=== PATIENT | female | born 1945 | race Caucasian/White ===

== ENCOUNTER → 2017-02-13 | Outpatient (CLI) | payer BC ==
[~2017-02-13] MED LIST: ASPEC81 PO; ATV/1 PO; ESTRADIOL 0.5MG PO; FEXO1TAB45 PO; HERBAL SUPPLEMENTS; HYZ/50125 PO; LEVO-366 PO; MEDR2.5T PO; NSNN50; OXYC1TAB3 PO; SENN8.6T36 PO; SNG10 PO; SYN125 PO; [UNRECOGNIZED DRUG - CODE] PO
--- NOTE | 2017-02-13 11:01 | DIAGNOSTIC IMAGING REPORT ---
LEFT HIP UNILATERAL 2 VIEWS CLINICAL HISTORY: Left hip pain. Trauma. COMPARISON: None. DISCUSSION: There is subtle chondrocalcinosis. There are no acute fractures. There are minor degenerative changes with minimal femoral head spurring. IMPRESSION: No acute fractures or dislocations identified. Electronically signed by: Edgar Steinberg M.D. 02/13/2017 11:00 AM Dictated Date/Time: 02/13/2017 10:59 AM
== END | disposition home or self-care (01) ==
LOC: C.RAD1850 10:40
PROVIDERS: ATTEND Nurse Practitioner Family
DX: M25.552 Pain in left hip (principal)

== ENCOUNTER → 2017-03-21 | Outpatient (CLI) | payer BC | END | disposition home or self-care (01) | LOC: C.PAPS 03-20 11:40 | PROVIDERS: ATTEND Obstetrics & Gynecology | DX: Z12.4 Encounter for screening for malignant neoplasm of cervix (principal) ==

== ENCOUNTER → 2017-05-30 | Outpatient (CLI) | payer BC ==
--- NOTE | 2017-05-30 15:34 | MAMMOGRAPHY REPORT ---
BILATERAL DIGITAL SCREENING MAMMOGRAM TOMOSYNTHESIS WITH CAD: 05/30/2017 CLINICAL HISTORY: Routine screening. Patient has no complaints. TECHNIQUE: Breast tomosynthesis in addition to standard 2D mammography was performed. Current study was also evaluated with a Computer Aided Detection (CAD) system. COMPARISON: Comparison is made to exams dated: 08/15/2015 mammogram, 09/10/2010 mammogram, 03/08/2010 mammogram, 03/05/2010 mammogram, 06/13/2005 mammogram, and 04/06/2003 mammogram - [facility] enter. BREAST COMPOSITION: The tissue of both breasts is heterogeneously dense, which may obscure small mas ses. FINDINGS: No suspicious masses, calcifications, or areas of architectural distortion are noted in ei ther breast. There has been no significant interval change compared to prior exams. Benign rodlike s ecretory calcifications are again noted bilaterally. IMPRESSION: ACR BI-RADS CATEGORY 2: BENIGN There is no mammographic evidence of malignancy. A 1 year screening mammogram is recommended. The pa tient will receive written notification of the results. Approximately 10% of breast cancers are not detected with mammography. A negative mammographic report should not delay biopsy if a clinically suggestive mass is present. Lina Vela M.D. /:05/30/2017 12:39:43 Swatch Cutter: Kylah GLOVER)(Anne)(BD), [facility] letter sent: Normal 1/2 BI-RADS Code: ACR BI-RADS Category 2: Benign
== END | disposition home or self-care (01) ==
LOC: C.MAMM 12:12
PROVIDERS: ATTEND Nurse Practitioner Family
DX: Z12.31 Encounter for screening mammogram for malignant neoplasm of breast (principal)

== ENCOUNTER → 2017-08-15 | Outpatient (CLI) | payer BC | END | disposition home or self-care (01) | LOC: C.RDSM 11:00 | PROVIDERS: ATTEND Orthopaedic Surgery | DX: M25.552 Pain in left hip (principal) ==

== ENCOUNTER 2018-02-05 13:23 | Inpatient (IN) | payer BC, OTHER ==
[~2018-02-05] VITALS: Ht 154.9 cm; Wt 84.0 kg
[2018-02-05] MEDS ORDERED: ASPI81TA28 PO (14:04)
[2018-02-05] MEDS ORDERED: LEVO175T3 PO (14:04)
[2018-02-05] MEDS ORDERED: LOSA100T65 PO (14:04)
--- NOTE | 2018-02-05 14:07 | EMERGENCY ROOM VISIT NOTE ---
History Report prepared by Amanda: Miquel Javier Under the Supervision of: Dr. Mushtaq Mcleod M.D. First contact with patient: 13:58 Chief Complaint: DIARRHEA Stated Complaint: SEVERE LIQUID DIARRHEA, NAUSEA History of Present Illness The patient is a 72 year old female who presents to the Emergency Room with complaints of intermittent diarrhea for the past 5 days. Patient describes the diarrhea as "liquid" in appearance. She adds that she has a headache, back pain , and nausea. Patient states that she sees Grace DAVIS for her symptoms. Patient states that she was at her office 2 days ago and was able to give a stool specimen. She adds that during that visit her abdomen was soft. Patient states that she went back to her office this morning was told to start eating and drinking. Patient states that diarrhea was worsened after she began to eat and drink. She states that she dropped off a stool specimen at Grace Presley's office this morning and was then told to come into the ED. Patient states that she used Imodium AD 2 times but it did not relieve the symptoms. Patient adds that she took doxycycline a month ago for symptoms of nausea, vomiting, and diarrhea. Patient states that she is "not with it right now". Source of History: patient Onset: 5 days ago Position: other (Rectum) Timing: intermittent Modifying Factors (Worsening): eating, drinking Associated Symptoms: + headache, + nausea, + back pain Review of Systems See HPI for pertinent positives and negatives. A total of ten systems were reviewed and were otherwise negative. Past Medical & Surgical Medical Problems: (1) WYATT (acute kidney injury) (2) Asthma (3) Hypertension (4) Stomach problems Surgical Problems: (1) History of back surgery Family History FH: cancer FHx: diabetes mellitus FHx: heart disease FHx: hypertension FHx: lung disease Social History Smoking Status: Never Smoker Marital Status: single Occupation Status: employed Current/Historical Medications Scheduled Aspirin (Aspirin Ec), 81 MG PO DAILY Hctz/Losartan (Hyzaar 12.5MG/50MG), 1 TAB PO DAILY Levothyroxine Sodium (Levothyroxine Sodium), 175 MCG PO DAILY Losartan Potassium (Cozaar), 100 MG PO DAILY Allergies Coded Allergies: Isopropyl Alcohol (Verified Allergy, Intermediate, RED BULLET-LIKE RASH, ) Codeine (Unverified Allergy, Unknown, n/v, 02/05/18) Acetaminophen (Verified Adverse Reaction, Unknown, doesn't want, feel funny, 02/05/18) Lisinopril (Verified Adverse Reaction, Unknown, cough, 02/05/18) Meperidine (Verified Adverse Reaction, Unknown, n/v/diaphoretic, 02/05/18) Sulfa Antibiotics (Verified Adverse Reaction, Unknown, N/V, 02/05/18) Physical Exam Vital Signs Date Time Temp Pulse Resp B/P (MAP) Pulse Ox O2 Delivery O2 Flow Rate FiO2 02/05/18 18:36 72 02/05/18 17:26 79 18 164/80 96 02/05/18 15:35 80 18 170/77 98 02/05/18 14:35 88 02/05/18 13:26 36.8 104 20 106/70 99 Room Air Physical Exam GENERAL: Awake, alert, uncomfortable, fatigued-appearing, in no distress HENT: Normocephalic, atraumatic. Oropharynx unremarkable other than dry mucous membranes. EYES: Normal conjunctiva. Sclera non-icteric. NECK: Supple. No nuchal rigidity. FROM. No JVD. RESPIRATORY: Clear to auscultation. CARDIAC: Regular rate, normal rhythm. Extremities warm and well perfused. Pulses equal. ABDOMEN: Generalized abdominal discomfort. No discrete tenderness to palpation. No rebound or guarding. No masses. RECTAL: Deferred. MUSCULOSKELETAL: Chest examination reveals no tenderness. The back is symmetrical on inspection without obvious abnormality. There is no CVA tenderness to palpation. No joint edema. LOWER EXTREMITIES: Calves are equal size bilaterally and non-tender. No edema. No discoloration. NEURO: Normal sensorium. No sensory or motor deficits noted. SKIN: No rash or jaundice noted. Medical Decision & Procedures ER Provider Diagnostic Interpretation: Radiology results as stated below per my review and radiologist interpretation: CHEST ONE VIEW PORTABLE CLINICAL HISTORY: ABDOMINAL PAIN/GI COMPARISON STUDY: No previous studies for comparison. FINDINGS: The bones soft tissues and hemidiaphragms are normal. The cardiomediastinal silhouette is normal. The lungs are clear. The pulmonary vasculature is normal. IMPRESSION: Negative chest. The above report was generated using voice recognition software. It may contain grammatical, syntax or spelling errors. Electronically signed by: Tate Hernandez M.D. 02/05/2018 3:08 PM ABDOMEN AND PELVIS CT WITHOUT CONTRAST CT DOSE: 851.34 mGy.cm HISTORY: Acute generalized abdominal pain with diarrhea abd pain, diarrhea TECHNIQUE: Multiaxial CT images of the abdomen and pelvis were performed without contrast. A dose lowering technique was utilized adhering to the principles of ALARA. COMPARISON STUDY: CT abdomen and pelvis 02/18/2013 FINDINGS: Patchy bibasilar groundglass opacities. No pneumatosis or pneumoperitoneum identified. The imaged inferior cardiac chambers are mildly enlarged without pericardial effusion. The liver, gallbladder, spleen, pancreas and adrenal glands are within normal limits. 6 mm peripherally calcified splenic artery aneurysm near the splenic hilum. 3 mm calcification of the medial interpolar left kidney suggests a vascular calcification. No ureteral calculi or obstructive uropathy. Bladder is unremarkable. Calcified uterine fibroids are noted within the fundal uterus. No adnexal mass lesions. Moderate calcification of the aorta without aneurysm. No bulky adenopathy. There is no bowel obstruction or focal bowel wall thickening. Mild degree of colonic diverticulosis without diverticulitis. There are multiple fluid-filled loops of large bowel noted throughout. I attenuating material seen within a noninflamed appendix suggesting appendicolith or retained barium. Indeterminate peripherally calcified 12 mm structure about the abdominal right lower quadrant may reflect a calcified lymph node. Tiny fat filled periumbilical hernia, diastases 1.8 cm. Calcifications of the bilateral breast parenchyma. Prior posterior decompression with interbody alison and screw fusion at L2-S1. Severe intervertebral disc space narrowing with endplate spurring at L1-L2. IMPRESSION: 1. Multiple fluid-filled loops of large bowel suggest diarrheal state without evidence of bowel wall thickening or bowel obstruction. 2. High attenuating material within the appendiceal lumen may reflect appendicolith or retained barium without evidence of acute appendicitis. 3. Calcified uterine fibroids. 4. Tiny fat filled periumbilical hernia. 5. Mild colonic diverticulosis without evidence of acute diverticulitis. Electronically signed by: Toñito Winter M.D. 02/05/2018 5:32 PM Laboratory Results 02/05/18 14:36 Red Blood Count 5.22, Mean Corpuscular Volume 88.7, Mean Corpuscular Hemoglobin 31.4, Mean Corpuscular Hemoglobin Concent 35.4, Mean Platelet Volume 10.5, Neutrophils (%) (Auto) 67.1, Lymphocytes (%) (Auto) 24.6, Monocytes (%) (Auto) 7.4, Eosinophils (%) (Auto) 0.6, Basophils (%) (Auto) 0.1, Neutrophils # (Auto) 5.66, Lymphocytes # (Auto) 2.07, Monocytes # (Auto) 0.62, Eosinophils # (Auto) 0.05, Basophils # (Auto) 0.01 02/05/18 14:36 Test 02/05/18 14:36 02/05/18 18:15 White Blood Count 8.43 K/uL (4.8-10.8) Red Blood Count 5.22 M/uL (4.2-5.4) Hemoglobin 16.4 g/dL (12.0-16.0) Hematocrit 46.3 % (37-47) Mean Corpuscular Volume 88.7 fL (80-100) Mean Corpuscular Hemoglobin 31.4 pg (25-34) Mean Corpuscular Hemoglobin Concent 35.4 g/dl (32-36) Platelet Count 320 K/uL (130-400) Mean Platelet Volume 10.5 fL (7.4-10.4) Neutrophils (%) (Auto) 67.1 % Lymphocytes (%) (Auto) 24.6 % Monocytes (%) (Auto) 7.4 % Eosinophils (%) (Auto) 0.6 % Basophils (%) (Auto) 0.1 % Neutrophils # (Auto) 5.66 K/uL (1.4-6.5) Lymphocytes # (Auto) 2.07 K/uL (1.2-3.4) Monocytes # (Auto) 0.62 K/uL (0.11-0.59) Eosinophils # (Auto) 0.05 K/uL (0-0.5) Basophils # (Auto) 0.01 K/uL (0-0.2) RDW Standard Deviation 41.6 fL (36.4-46.3) RDW Coefficient of Variation 12.8 % (11.5-14.5) Immature Granulocyte % (Auto) 0.2 % Immature Granulocyte # (Auto) 0.02 K/uL (0.00-0.02) Erythrocyte Sedimentation Rate 9 mm/hr (0-21) Prothrombin Time 10.1 SECONDS (9.0-12.0) Prothromb Time International Ratio 1.0 (0.9-1.1) Anion Gap 6.0 mmol/L (3-11) Estimated GFR () 23.8 Estimated GFR (Non- 20.5 BUN/Creatinine Ratio 10.3 (10-20) Lactic Acid Level 3.4 mmol/L (0.4-2.0) Calcium Level 10.8 mg/dl (8.5-10.1) Magnesium Level 2.4 mg/dl (1.8-2.4) Total Bilirubin 0.4 mg/dl (0.2-1) Direct Bilirubin 0.1 mg/dl (0-0.2) Aspartate Amino Transf (AST/SGOT) 23 U/L (15-37) Alanine Aminotransferase (ALT/SGPT) 42 U/L (12-78) Alkaline Phosphatase 115 U/L (45-117) C-Reactive Protein 1.07 mg/dl (0-0.29) Total Protein 7.8 gm/dl (6.4-8.2) Albumin 4.0 gm/dl (3.4-5.0) Lipase 122 U/L (73-393) Bedside Lactic Acid Venous 1.73 mmol/L (0.90-1.70) Laboratory results reviewed by me Medications Administered Medications (Trade) Dose Ordered Sig/Vaishali Route Start Time Stop Time Status Last Admin Dose Admin Sodium Chloride 1,000 ml @ 999 mls/hr Q1H1M STAT IV 02/05/18 14:10 02/05/18 15:10 DC 02/05/18 14:40 999 MLS/HR Sodium Chloride 1,000 ml @ 125 mls/hr Q8H STAT IV 02/05/18 15:25 02/05/18 21:20 DC 02/05/18 17:00 125 MLS/HR Ondansetron HCl (Zofran Inj) 4 mg NOW STAT IV 02/05/18 15:25 02/05/18 15:27 DC 02/05/18 15:37 4 MG ECG Per My Interpretation Indication: nausea Rate (beats per minute): 91 Rhythm: normal sinus Findings: no acute ischemic change, no ectopy, other (Left anterior ventricular block) ED Course 1402: The patient was evaluated in room B8. A complete history and physical exam was performed. 1744: I reassessed the patient. She states that she is feeling better. 1843: Upon reexamination, the patient will be further evaluated. I discussed the test results and treatment plan with her. The patient will be evaluated for further management. Medical Decision I reviewed the patient's past medical history, medications, and the nursing notes as described above. Differential diagnosis: Etiologies such as gastroenteritis, food borne illness, infections, appendicitis , diverticulitis, inflammatory bowel disease, obstruction, GI bleed, biliary pathology, as well as others were entertained. The patient is a 72-year-old woman who presents emergency department with persistent watery diarrhea per hpi. On arrival the patient is fatigued and uncomfortable but no acute distress, afebrile, heart rate 100s, otherwise stable vital signs. On exam the patient has generalized abdominal discomfort but no discrete tenderness. Labs notable for acute renal insufficiency with creatinine of 2.3 which is increased from 1.3 earlier today at 10 AM on outpatient labs. Initial lactate elevated at 3.4. WBC within normal limits. CT abdomen pelvis most consistent with enteritis. Patient feeling slightly improved after IV fluid hydration. Repeat lactate improved to 1.7 after hydration. However, given the patient's acute kidney injury, admission for continued supportive care is reasonable. Dr. Smith, [facility] hospitalist, pagekarli and will evaluate the patient for admission. Medication Reconcilliation Current Medication List: was personally reviewed by me Blood Pressure Screening Patient's blood pressure: Elevated blood pressure Addressed as an inpatient. Consults Time Called: 1823 Consulting Physician: Dr. Sarah Harris. Impression Primary Impression: Acute kidney injury Additional Impression: Diarrhea Scribe Attestation The scribe's documentation has been prepared under my direction and personally reviewed by me in its entirety. I confirm that the note above accurately reflects all work, treatment, procedures, and medical decision making performed by me. Departure Information Dispostion Being Evaluated By Hospitalist Referrals Grace Presley (PCP) Forms HOME CARE DOCUMENTATION FORM, IMPORTANT VISIT INFORMATION, WORK / SCHOOL INSTRUCTIONS Patient Instructions My [facility] Problem Qualifiers
[2018-02-05] MEDS ORDERED: SODIUM CHLORIDE 0.9% 1000ML 1,000 ML IV STA ×2 (14:10→15:25)
[2018-02-05] MEDS ORDERED: OPTIRAY 320 IV PRN (14:30)
[2018-02-05 14:52] LABS: BASO % 0.1 %; BASO ABS # 0.01 K/uL (0-0.2); EOS % 0.6 %; EOS ABS # 0.05 K/uL (0-0.5); HEMATOCRIT 46.3 % (37-47); HEMOGLOBIN 16.4 g/dL (12.0-16.0); IG# 0.02 K/uL (0.00-0.02); LYMPH % 24.6 %; LYMPH ABS # 2.07 K/uL (1.2-3.4); MEAN CELL VOLUME 88.7 fL (80-100); MEAN CORPUSCULAR HEMOGLOBIN 31.4 pg (25-34); MEAN CORPUSCULAR HGB CONC 35.4 g/dl (32-36); MEAN PLATELET VOLUME 10.5 fL (7.4-10.4); MONO % 7.4 %; MONO ABS # 0.62 K/uL (0.11-0.59); NEUT % 67.1 %; NEUT ABS # 5.66 K/uL (1.4-6.5); PLATELET COUNT 320 K/uL (130-400); RED CELL DISTRIBUTION WIDTH CV 12.8 % (11.5-14.5); RED CELL DISTRIBUTION WIDTH SD 41.6 fL (36.4-46.3); WHITE BLOOD COUNT 8.43 K/uL (4.8-10.8)
--- NOTE | 2018-02-05 15:09 | DIAGNOSTIC IMAGING REPORT ---
CHEST ONE VIEW PORTABLE CLINICAL HISTORY: ABDOMINAL PAIN/GI COMPARISON STUDY: No previous studies for comparison. FINDINGS: The bones soft tissues and hemidiaphragms are normal. The cardiomediastinal silhouette is normal. The lungs are clear. The pulmonary vasculature is normal. IMPRESSION: Negative chest. The above report was generated using voice recognition software. It may contain grammatical, syntax or spelling errors. Electronically signed by: Tate Hernandez M.D. 02/05/2018 3:08 PM Dictated Date/Time: 02/05/2018 3:06 PM
[2018-02-05 15:10] LABS: ALT/SGPT 42 U/L (12-78); AST/SGOT 23 U/L (15-37); BLOOD UREA NITROGEN 24 mg/dl (7-18); CALCIUM 10.8 mg/dl (8.5-10.1); CARBON DIOXIDE 21 mmol/L (21-32); GLUCOSE 156 mg/dl (70-99); LIPASE 122 U/L (73-393); POTASSIUM 4.4 mmol/L (3.5-5.1); SODIUM 142 mmol/L (136-145)
[2018-02-05 15:13] LABS: ALKALINE PHOSPHATASE 115 U/L (45-117); TOTAL PROTEIN 7.8 gm/dl (6.4-8.2)
[2018-02-05] MEDS ORDERED: ONDANSETRON INJ 2 MG/ML 2 ML VIAL IV STA (15:25)
--- NOTE | 2018-02-05 17:33 | DIAGNOSTIC IMAGING REPORT ---
ABDOMEN AND PELVIS CT WITHOUT CONTRAST CT DOSE: 851.34 mGy.cm HISTORY: Acute generalized abdominal pain with diarrhea abd pain, diarrhea TECHNIQUE: Multiaxial CT images of the abdomen and pelvis were performed without contrast. A dose lowering technique was utilized adhering to the principles of ALARA. COMPARISON STUDY: CT abdomen and pelvis 02/18/2013 FINDINGS: Patchy bibasilar groundglass opacities. No pneumatosis or pneumoperitoneum identified. The imaged inferior cardiac chambers are mildly enlarged without pericardial effusion. The liver, gallbladder, spleen, pancreas and adrenal glands are within normal limits. 6 mm peripherally calcified splenic artery aneurysm near the splenic hilum. 3 mm calcification of the medial interpolar left kidney suggests a vascular calcification. No ureteral calculi or obstructive uropathy. Bladder is unremarkable. Calcified uterine fibroids are noted within the fundal uterus. No adnexal mass lesions. Moderate calcification of the aorta without aneurysm. No bulky adenopathy. There is no bowel obstruction or focal bowel wall thickening. Mild degree of colonic diverticulosis without diverticulitis. There are multiple fluid-filled loops of large bowel noted throughout. I attenuating material seen within a noninflamed appendix suggesting appendicolith or retained barium. Indeterminate peripherally calcified 12 mm structure about the abdominal right lower quadrant may reflect a calcified lymph node. Tiny fat filled periumbilical hernia, diastases 1.8 cm. Calcifications of the bilateral breast parenchyma. Prior posterior decompression with interbody alison and screw fusion at L2-S1. Severe intervertebral disc space narrowing with endplate spurring at L1-L2. IMPRESSION: 1. Multiple fluid-filled loops of large bowel suggest diarrheal state without evidence of bowel wall thickening or bowel obstruction. 2. High attenuating material within the appendiceal lumen may reflect appendicolith or retained barium without evidence of acute appendicitis. 3. Calcified uterine fibroids. 4. Tiny fat filled periumbilical hernia. 5. Mild colonic diverticulosis without evidence of acute diverticulitis. Electronically signed by: Toñito Winter M.D. 02/05/2018 5:32 PM Dictated Date/Time: 02/05/2018 5:24 PM
[2018-02-05] MEDS ORDERED: ONDANSETRON INJ 2 MG/ML 2 ML VIAL IV PRN (18:45)
[2018-02-05] MEDS ORDERED: MAGNESIUM HYDROXIDE SUSP 30 ML UDC PO PRN (18:45)
[2018-02-05] MEDS ORDERED: ALUMINUM/MAGNESIUM/SIMETH (MAALOX MAX) 30 ML UDC PO PRN (18:45)
[2018-02-05] MEDS ORDERED: POLYETHYLENE (MIRALAX) 17 GM PACK PO PRN (18:45)
--- NOTE | 2018-02-05 18:53 | History and Physical ---
History & Physical Date & Time of Service: February 05, 2018 at 18:35 Chief Complaint: Severe Liquid Diarrhea, Nausea Primary Care Physician: Grace Presley History of Present Illness Source: patient 72 y/o F Hx HTN, hypothyroidism. Presents with 5 days of persistent diarrhea. She also describes nausea and weakness. She presented to her primary MD 2 days ago and a stool sample for C diff was obtained. This returned negative. She denies fevers, CP, or dysuria. She denies hematochezia. Labs were obtained in the ER and are notable for ARF and an elevated lactic acid. Past Medical/Surgical History 1) HTN 2) Asthma 3) History of back surgery - alison placement in Lumbar spine - chronic pain 4) Hypothyroid In addition to her scheduled meds she takes several herbal products including but not limited to [place] extract, Hemp extract, Turmeric Family History FH: cancer FHx: diabetes mellitus FHx: heart disease FHx: hypertension FHx: lung disease Father due to lung CA age 71 Mother due to complications of Alzheimers age 71 Social History Smoking Status: Never Smoker Marital Status: single Housing status: lives with family Occupational Status: employed Immunizations History of Influenza Vaccine: Yes History of Tetanus Vaccine?: Yes History of Pneumococcal: Unknown History of Hepatitis B Vaccine: Yes Allergies Coded Allergies: Isopropyl Alcohol (Verified Allergy, Intermediate, RED BULLET-LIKE RASH, ) Codeine (Unverified Allergy, Unknown, n/v, 02/05/18) Acetaminophen (Verified Adverse Reaction, Unknown, doesn't want, feel funny, 02/05/18) Lisinopril (Verified Adverse Reaction, Unknown, cough, 02/05/18) Meperidine (Verified Adverse Reaction, Unknown, n/v/diaphoretic, 02/05/18) Sulfa Drugs (Verified Adverse Reaction, Unknown, N/V, 02/05/18) Home Medications Scheduled Aspirin (Aspirin Ec), 81 MG PO DAILY Hctz/Losartan (Hyzaar 12.5MG/50MG), 1 TAB PO DAILY Levothyroxine Sodium (Levothyroxine Sodium), 175 MCG PO DAILY Losartan Potassium (Cozaar), 100 MG PO DAILY Review of Systems Constitutional: + weakness, No fever, No chills, No sweats Eyes: No worsening of vision ENT: No hearing loss, No nasal symptoms Respiratory: No cough, No sputum, No wheezing Cardiovascular: No chest pain, No orthopnea, No PND Abdomen: + nausea, + diarrhea, No pain, No vomiting Musculoskeletal: No joint pain Genitourinary - Female: No dysuria, No hematuria Neurologic: + weakness, No memory loss Psychiatric: No depression symptoms Endocrine: + fatigue Hematologic / Lymphatic: No abnormal bleeding/bruising Physical Exam Vital Signs Date Time Temp Pulse Resp B/P (MAP) Pulse Ox O2 Delivery O2 Flow Rate FiO2 02/05/18 17:26 79 18 164/80 96 02/05/18 15:35 80 18 170/77 98 02/05/18 14:35 88 02/05/18 13:26 36.8 104 20 106/70 99 Room Air General Appearance: WD/WN, no apparent distress Head: normocephalic Eyes: normal inspection ENT: normal ENT inspection, pharynx normal Neck: supple, no JVD Respiratory/Chest: chest non-tender, lungs clear, normal breath sounds Cardiovascular: regular rate, rhythm, no edema, no gallop Abdomen/GI: normal bowel sounds, non tender, soft Back: normal inspection, no CVA tenderness Extremities/Musculoskelatal: normal inspection, no calf tenderness 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 as tested, no motor/sensory deficits, alert, oriented x 3 Skin: normal color Diagnostics Laboratory Results Results Past 24 Hours Test 02/05/18 14:36 02/05/18 18:15 Range/Units White Blood Count 8.43 4.8-10.8 K/uL Red Blood Count 5.22 4.2-5.4 M/uL Hemoglobin 16.4 12.0-16.0 g/dL Hematocrit 46.3 37-47 % Mean Corpuscular Volume 88.7 80-100 fL Mean Corpuscular Hemoglobin 31.4 25-34 pg Mean Corpuscular Hemoglobin Concent 35.4 32-36 g/dl Platelet Count 320 130-400 K/uL Mean Platelet Volume 10.5 7.4-10.4 fL Neutrophils (%) (Auto) 67.1 % Lymphocytes (%) (Auto) 24.6 % Monocytes (%) (Auto) 7.4 % Eosinophils (%) (Auto) 0.6 % Basophils (%) (Auto) 0.1 % Neutrophils # (Auto) 5.66 1.4-6.5 K/uL Lymphocytes # (Auto) 2.07 1.2-3.4 K/uL Monocytes # (Auto) 0.62 0.11-0.59 K/uL Eosinophils # (Auto) 0.05 0-0.5 K/uL Basophils # (Auto) 0.01 0-0.2 K/uL RDW Standard Deviation 41.6 36.4-46.3 fL RDW Coefficient of Variation 12.8 11.5-14.5 % Immature Granulocyte % (Auto) 0.2 % Immature Granulocyte # (Auto) 0.02 0.00-0.02 K/uL Erythrocyte Sedimentation Rate 9 0-21 mm/hr Sodium Level 142 136-145 mmol/L Potassium Level 4.4 3.5-5.1 mmol/L Chloride Level 115 98-107 mmol/L Carbon Dioxide Level 21 21-32 mmol/L Anion Gap 6.0 3-11 mmol/L Blood Urea Nitrogen 24 7-18 mg/dl Creatinine 2.30 0.60-1.20 mg/dl Estimated GFR () 23.8 Estimated GFR (Non- 20.5 BUN/Creatinine Ratio 10.3 10-20 Random Glucose 156 70-99 mg/dl Lactic Acid Level 3.4 0.4-2.0 mmol/L Calcium Level 10.8 8.5-10.1 mg/dl Magnesium Level 2.4 1.8-2.4 mg/dl Total Bilirubin 0.4 0.2-1 mg/dl Direct Bilirubin 0.1 0-0.2 mg/dl Aspartate Amino Transf (AST/SGOT) 23 15-37 U/L Alanine Aminotransferase (ALT/SGPT) 42 12-78 U/L Alkaline Phosphatase 115 45-117 U/L C-Reactive Protein 1.07 0-0.29 mg/dl Total Protein 7.8 6.4-8.2 gm/dl Albumin 4.0 3.4-5.0 gm/dl Lipase 122 73-393 U/L Bedside Lactic Acid Venous 1.73 0.90-1.70 mmol/L Microbiology Results 02/05/18 C.difficile Toxin B Gene (PCR) - Final, Complete No C. difficile toxin B gene detected Diagnostic Radiology CT abdomen 1. Multiple fluid-filled loops of large bowel suggest diarrheal state without evidence of bowel wall thickening or bowel obstruction. 2. High attenuating material within the appendiceal lumen may reflect appendicolith or retained barium without evidence of acute appendicitis. 3. Calcified uterine fibroids. 4. Tiny fat filled periumbilical hernia. 5. Mild colonic diverticulosis without evidence of acute diverticulitis. Impression Assessment and Plan 72 y/o F Hx HTN, hypothyroidism. Presents with 5 days of persistent diarrhea. She also describes nausea and weakness. She presented to her primary MD 2 days ago and a stool sample for C diff was obtained. This returned negative. She denies fevers, CP, or dysuria. She denies hematochezia. Labs were obtained in the ER and are notable for ARF and an elevated lactic acid. 1) Persistent diarrhea - stool cultures pending - there is no indication of colitis or other acute inflammatory process on CT so that we will hold off on antibiotics for now. 2) ARF - IVF provided - will trend BMP - this is likely prerenal as she is clinically dehydrated. If the failure does not resolve with IVF, further wokup should consider NSAID Nephropathy as she takes Ibuprofen for her back a few times daily. 3) HTN - She takes HCTZ/Triamterene and an ARB which are held in light of ARF - we will provide PRN Hydralazine as needed. 4) We have noted that her lactic acid is elevated and believe this id due to dehydration and ARF - this will be repeated at the appropriate time. Full code - Heparin prophylaxis Total time for this admit including review of labs, meds, imaging, records - discussion wt pt and ER attending - 33 min Resuscitation Status VTE Prophylaxis Will order VTE Prophylaxis: Yes
[2018-02-05] MEDS ORDERED: TRAMADOL HCL 50 MG TAB PO PRN (19:45)
[2018-02-05 20:07] VITALS: Ht 154.9 cm; Wt 84.0 kg
[2018-02-05 20:16] VITALS: O2SAT 99
[2018-02-05 20:40] VITALS: BP 168/83; PULSE 74; TEMP 36.6; O2SAT 98
[2018-02-05] MEDS: SODIUM CHLORIDE 0.9% 1000ML 1,000 ML IV SCH (21:31)
[2018-02-05] MEDS: HEPARIN SOD 5000 UNIT/0.5 ML CARP SQ SCH (21:45)
[2018-02-05 23:54] VITALS: BP 155/85; PULSE 64; TEMP 36.6; O2SAT 98
[2018-02-06] MEDS: SODIUM CHLORIDE 0.9% 1000ML 1,000 ML IV SCH (04:20)
[2018-02-06] MEDS: LEVOTHYROXINE 175 MCG TAB PO SCH (06:29)
[2018-02-06 07:32] VITALS: BP 144/78; PULSE 59; TEMP 36.3; O2SAT 97
[2018-02-06 09:18] LABS: HEMATOCRIT 35.6 % (37-47); HEMOGLOBIN 12.3 g/dL (12.0-16.0); MEAN CELL VOLUME 88.8 fL (80-100); MEAN CORPUSCULAR HEMOGLOBIN 30.7 pg (25-34); MEAN CORPUSCULAR HGB CONC 34.6 g/dl (32-36); MEAN PLATELET VOLUME 9.6 fL (7.4-10.4); PLATELET COUNT 205 K/uL (130-400); RED CELL DISTRIBUTION WIDTH CV 12.9 % (11.5-14.5); RED CELL DISTRIBUTION WIDTH SD 41.9 fL (36.4-46.3); WHITE BLOOD COUNT 5.33 K/uL (4.8-10.8)
[2018-02-06] MEDS: HEPARIN SOD 5000 UNIT/0.5 ML CARP SQ SCH ×2 (09:40→21:41)
[2018-02-06] MEDS: ASPIRIN 81 MG ECTAB PO SCH (09:41)
[2018-02-06 10:18] LABS: CALCIUM 8.6 mg/dl (8.5-10.1); CREATININE 0.91 mg/dl (0.60-1.20); PHOSPHORUS 2.1 mg/dl (2.5-4.9); POTASSIUM 3.4 mmol/L (3.5-5.1)
[2018-02-06] MEDS: POTASSIUM CHLORIDE 20 MEQ TABCR PO SCH ×2 (14:11→21:41)
[2018-02-06] MEDS: MAGNESIUM OXIDE 400 MG TAB PO SCH ×2 (14:11→21:40)
[2018-02-06] MEDS ORDERED: LIDODERM (LIDOCAINE) PATCH 5% TD ONE (14:59)
[2018-02-06] MEDS: POT PHOSPHATE MONOBASIC W/ SOD TAB PO SCH ×2 (17:01→21:40)
[2018-02-06] MEDS ORDERED: NURSING VERBAL MED ORDER ONE (17:30)
[2018-02-06] MEDS ORDERED: LIDODERM (LIDOCAINE) PATCH 5% TD SCH (21:00)
--- NOTE | 2018-02-06 22:44 | Progress Note ---
Subjective Date of Service: February 06, 2018. Subjective Patient reports feeling better. she states she continues to feel somewhat weak and fatigued. No BM by time patient was interrogated. Problem List Medical Problems: (1) Acute kidney injury Status: Acute (2) Diarrhea Status: Acute Review of Systems Constitutional: No fever, No chills Eyes: No worsening of vision ENT: No hearing loss Respiratory: No cough Cardiac: No chest pain Abdomen: + diarrhea, No pain Musculoskeletal: No joint pain Neurologic: No memory loss Endo: + fatigue Skin: No rash All Other Systems: Reviewed and Negative Objective Vital Signs Date Time Temp Pulse Resp B/P (MAP) Pulse Ox O2 Delivery O2 Flow Rate FiO2 02/06/18 16:15 Room Air 02/06/18 10:25 Room Air 02/06/18 07:32 36.3 59 20 144/78 (100) 97 Room Air 02/06/18 01:50 Room Air 02/05/18 23:54 36.6 64 18 155/85 (108) 98 Room Air Physical Exam General Appearance: WD/WN, no apparent distress Eyes: normal inspection ENT: normal ENT inspection Neck: supple, no adenopathy Respiratory/Chest: chest non-tender, lungs clear, normal breath sounds Cardiovascular: regular rate, rhythm, no edema Abdomen: normal bowel sounds, non tender, soft Extremities: normal range of motion Skin: normal color Lymphatic: no adenopathy Laboratory Results Last 24 Hours Test 02/06/18 09:01 02/06/18 09:30 White Blood Count 5.33 K/uL Red Blood Count 4.01 M/uL Hemoglobin 12.3 g/dL Hematocrit 35.6 % Mean Corpuscular Volume 88.8 fL Mean Corpuscular Hemoglobin 30.7 pg Mean Corpuscular Hemoglobin Concent 34.6 g/dl RDW Standard Deviation 41.9 fL RDW Coefficient of Variation 12.9 % Platelet Count 205 K/uL Mean Platelet Volume 9.6 fL Sodium Level 143 mmol/L Potassium Level 3.4 mmol/L Chloride Level 115 mmol/L Carbon Dioxide Level 21 mmol/L Anion Gap 7.0 mmol/L Blood Urea Nitrogen 14 mg/dl Creatinine 0.91 mg/dl Est Creatinine Clear Calc Drug Dose 54.9 ml/min Estimated GFR () 73.1 Estimated GFR (Non- 63.0 BUN/Creatinine Ratio 14.9 Random Glucose 86 mg/dl Lactic Acid Level 1.2 mmol/L Calcium Level 8.6 mg/dl Phosphorus Level 2.1 mg/dl Magnesium Level 1.6 mg/dl Urine Color YELLOW Urine Appearance CLEAR Urine pH 5.0 Urine Specific [place] 1.013 Urine Protein NEG Urine Glucose (UA) NEG Urine Ketones NEG Urine Occult Blood NEG Urine Nitrite NEG Urine Bilirubin NEG Urine Urobilinogen NEG Urine Leukocyte Esterase TRACE Urine WBC (Auto) 1-5 /hpf Urine RBC (Auto) 0-4 /hpf Urine Hyaline Casts (Auto) 1-5 /lpf Urine Epithelial Cells (Auto) 10-20 /lpf Urine Bacteria (Auto) NEG Assessment and Plan 72 y/o F Hx HTN, hypothyroidism. Presents with 5 days of persistent diarrhea. She also describes nausea and weakness. She presented to her primary MD 2 days ago and a stool sample for C diff was obtained. This returned negative. She denies fevers, CP, or dysuria. She denies hematochezia. Labs were obtained in the ER and are notable for ARF and an elevated lactic acid. 1) Persistent diarrhea - Diarrhea apears to have improved. will monitor 2) ARF - IVF provided - will trend BMP - this is likely prerenal as she is clinically dehydrated. Resolved with fluids 3) HTN - She takes HCTZ/Triamterene and an ARB which are held in light of ARF - we will provide PRN Hydralazine as needed. 4) lactic acidosis: improved 5) hypophosphatemia will replace likely from prob. one 6)hypomagnesemia will replace.
[2018-02-06 23:49] VITALS: BP 146/54; PULSE 59; TEMP 36.5; O2SAT 97
[2018-02-07] MEDS: LEVOTHYROXINE 175 MCG TAB PO SCH (06:02)
[2018-02-07 07:40] VITALS: BP 185/81; PULSE 55; TEMP 36.7; O2SAT 98
[2018-02-07] MEDS ORDERED: LIDODERM (LIDOCAINE) PATCH 5% TD SCH (08:00)
[2018-02-07] MEDS: POT PHOSPHATE MONOBASIC W/ SOD TAB PO SCH (08:53)
[2018-02-07] MEDS: MAGNESIUM OXIDE 400 MG TAB PO SCH (08:54)
[2018-02-07] MEDS: ASPIRIN 81 MG ECTAB PO SCH (08:54)
[2018-02-07] MEDS: POTASSIUM CHLORIDE 20 MEQ TABCR PO SCH (08:54)
[2018-02-07] MEDS: HEPARIN SOD 5000 UNIT/0.5 ML CARP SQ SCH (08:55)
[2018-02-07 09:59] LABS: HEMATOCRIT 38.2 % (37-47); HEMOGLOBIN 13.3 g/dL (12.0-16.0); MEAN CELL VOLUME 87.8 fL (80-100); MEAN CORPUSCULAR HEMOGLOBIN 30.6 pg (25-34); MEAN CORPUSCULAR HGB CONC 34.8 g/dl (32-36); MEAN PLATELET VOLUME 9.8 fL (7.4-10.4); PLATELET COUNT 228 K/uL (130-400); RED CELL DISTRIBUTION WIDTH CV 12.6 % (11.5-14.5); RED CELL DISTRIBUTION WIDTH SD 40.6 fL (36.4-46.3); WHITE BLOOD COUNT 5.65 K/uL (4.8-10.8)
[2018-02-07] MEDS ORDERED: LOSARTAN POTASSIUM 50 MG TAB PO ONE (10:00)
[2018-02-07 10:17] LABS: CALCIUM 9.5 mg/dl (8.5-10.1); CREATININE 0.81 mg/dl (0.60-1.20); PHOSPHORUS 2.3 mg/dl (2.5-4.9)
[2018-02-07 11:52] VITALS: BP 171/93
[2018-02-07] MEDS ORDERED: MGNO400 PO (12:02)
--- NOTE | 2018-02-07 12:04 | Discharge Instructions ---
Discharge Instructions Date of Service February 07, 2018. Admission Reason for Admission: Jose R, Diarrhea Discharge Discharge Diagnosis / Problem: Diarrhea, Discharge Goals Goal(s): Decrease discomfort, Improve function Activity Recommendations Activity Limitations: resume your previous activity . Instructions / Follow-Up Instructions / Follow-Up Follow up with PCP in 1-2 weeks Current Hospital Diet Patient's current hospital diet: AHA Diet (Heart Healthy) Discharge Diet Recommended Diet: Regular Diet Pending Studies Studies pending at discharge: no Medical Emergencies . Who to Call and When: Medical Emergencies: If at any time you feel your situation is an emergency, please call 911 immediately. . Non-Emergent Contact Non-Emergency issues call your: Primary Care Provider Call Non-Emergent contact if: you have any medication questions . . "Provider Documentation" section prepared by Frank Altamirano. .
[2018-02-07 12:51] VITALS: BP 171/93; PULSE 55; TEMP 36.7; O2SAT 98
--- NOTE | 2018-02-10 10:55 | Discharge Summary ---
Discharge Summary Date of Service February 10, 2018. Discharge Summary Admission Date: February 05, 2018 at 18:46 Discharge Date: February 07, 2018 Discharge Disposition: Home Principal Diagnosis: Diarrhea/ dehydration Immunizations: Have You Had Influenza Vaccine: Yes History of Tetanus Vaccine?: Yes History of Pneumococcal: Unknown History of Hepatitis B Vaccine: Yes Medication Reconciliation New Medications: Magnesium Oxide (Magnesium-Oxide) 400 Mg Tab 400 MG PO BID for 14 Days, #14 TAB Continued Medications: Aspirin (Aspirin Ec) 81 Mg Tab 81 MG PO DAILY Levothyroxine Sodium (Levothyroxine Sodium) 175 Mcg Tab 175 MCG PO DAILY for 90 Days, #90 TAB 3 Refills Losartan Potassium (Cozaar) 100 Mg Tab 100 MG PO DAILY, TAB Discontinued Medications: Hctz/Losartan (Hyzaar 12.5MG/50MG) Tab 1 TAB PO DAILY for fluid, 0 Refills Discharge Exam Review of Systems: Constitutional: No fever Eyes: No worsening of vision ENT: No hearing loss Respiratory: No cough Cardiovascular: No chest pain Abdomen: No pain Musculoskeletal: No joint pain Neurologic: No memory loss Psychiatric: No depression symptoms Endocrine: No fatigue Hematologic / Lymphatic: No abnormal bleeding/bruising Integumentary: No rash Physical Exam: General Appearance: WD/WN, no apparent distress Eyes: normal inspection ENT: normal ENT inspection Neck: supple, no adenopathy Respiratory/Chest: chest non-tender, lungs clear Cardiovascular: regular rate, rhythm, no edema Abdomen / GI: normal bowel sounds, non tender, soft Extremities: normal inspection Neurologic/Psychiatric: alert, oriented x 3 Skin: normal color Hospital Course 72 y/o F Hx HTN, hypothyroidism. Presents with 5 days of persistent diarrhea. She also describes nausea and weakness. She presented to her primary MD 2 days ago and a stool sample for C diff was obtained. This returned negative. She denies fevers, CP, or dysuria. She denies hematochezia. Labs were obtained in the ER and are notable for ARF and an elevated lactic acid. 1) Persistent diarrhea - Patient diarrhea improved through out hospital stay. did not require antibiotics likely viral 2) ARF - IVF provided - will trend BMP - this is likely prerenal as she is clinically dehydrated. Resolved with fluids 3) HTN - She takes HCTZ/Triamterene and an ARB which are held in light of ARF - we will provide PRN Hydralazine as needed. will dc on regular bp meds 4) lactic acidosis: improved. resolved with fluids 5) hypophosphatemia will replace likely from prob. one 6)hypomagnesemia replaced. will continue as outpatient. Total Time Spent: Greater than 30 minutes This includes examination of the patient, discharge planning, medication reconciliation, and communication with other providers. Discharge Instructions Please refer to the electronic Patient Visit Report (Discharge Instructions) for additional information. Follow-Up as noted in discharge instructions Additional Copies To Grace Presley
== END 2018-02-07 13:19 | disposition home or self-care (01) | DRG 683 ==
LOC: C.EDB 13:24 → C.4E 18:46 → UNDOADMIN 18:54 → C.4E 18:54 → ENRESERV 19:41
PROVIDERS: ADMIT Internal Medicine; ATTEND Internal Medicine
DX: N17.9 Acute kidney failure, unspecified (principal); E87.2 Acidosis; A08.4 Viral intestinal infection, unspecified; E86.0 Dehydration; E83.42 Hypomagnesemia; E83.39 Other disorders of phosphorus metabolism; I10 Essential (primary) hypertension; J45.909 Unspecified asthma, uncomplicated; E03.9 Hypothyroidism, unspecified; Z51.81 Encounter for therapeutic drug level monitoring; Z79.899 Other long term (current) drug therapy; Z79.82 Long term (current) use of aspirin; Z88.5 Allergy status to narcotic agent; Z88.6 Allergy status to analgesic agent; Z88.2 Allergy status to sulfonamides; Z88.8 Allergy status to other drugs, medicaments and biological substances; Z91.048 Other nonmedicinal substance allergy status; Z82.49 Family history of ischemic heart disease and other diseases of the circulatory system; Z83.3 Family history of diabetes mellitus; Z80.1 Family history of malignant neoplasm of trachea, bronchus and lung; Z82.0 Family history of epilepsy and other diseases of the nervous system

== ENCOUNTER 2021-02-15 15:30 | Observation (INO) ==
[2021-02-15] MEDS ORDERED: ASPIRIN CHEW 324 MG PO STA (15:49)
--- NOTE | 2021-02-15 16:22 | Emergency Department Note ---
Impression & Plan Chest pain ED Provider Note NAME: MARGY PORTER AGE: 75 SEX: F : 1945 ARRIVES VIA: Walk-In INFORMANT: Patient, ED PROVIDER(S): Tj Shelby DO CHIEF COMPLAINT: Chest pain HPI: The patient is a 75-year-old female who presented to the emergency department for an evaluation of chest pain. The patient describes chest pain in her left upper chest that radiates to her left shoulder. She states the pain is been intermittent. The pain started earlier this week. She denies having any nausea but does complain of some dyspnea. She was seen by her primary care physician. 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 She did take aspirin previously for this pain which did help somewhat. She denies having any lower extremity weakness or swelling. She states the pain began at rest. The patient has never had a cardiac stent in the past. She denies having any abdominal pain. She denies having any back pain. She did note that her blood pressure was elevated. The patient does state that she has been compliant with all of her outpatient medication regimen. ROS: See above HPI for pertinent positives & negatives. A total of 10 systems reviewed and were otherwise negative. PAST MEDICAL HISTORY: See Below PAST SURGICAL HISTORY: See Below FAMILY HISTORY: See Below SOCIAL HISTORY: See Below HOME MEDICATIONS: See Below ALLERGIES: See Below VITALS: See Below PHYSICAL EXAMINATION: GENERAL: Patient is awake alert in no acute distress patient is resting comfortably and showing no signs of anxiety EYES: The conjunctivae are clear. The pupils are round and reactive. EARS, NOSE, MOUTH AND THROAT: The nose is without any evidence of any deformity. Mucous membranes are moist. Tongue is midline. NECK: The neck is nontender and supple. RESPIRATORY: Normal respiratory effort is noted there is no evidence of wheezing rhonchi or rales CARDIOVASCULAR: Regular rate and rhythm noted there no murmurs rubs or gallops normal S1 normal S2. GASTROINTESTINAL: The abdomen is soft. Abdomen is nontender. MUSCULOSKELETAL/EXTREMITIES: There is no evidence of gross deformity full range of motion is noted in the hips and shoulders. SKIN: There is no obvious evidence of any rash. There are no petechiae, pallor or cyanosis noted. Pulses are symmetric in both wrists. NEUROLOGIC: Patient is awake alert and oriented x3 strength is symmetric patellar reflexes are 2+ bilaterally MEDICAL DECISION MAKING: The patient is a 75-year-old female who who presented to the emergency department at the request of her primary care physician and her primary c ardiologist for an evaluation of chest pain. The patient was sent specifically for stress testing. I discussed the patient's laboratory and radiographic studies with her. I also discussed the limitations of the emergency department work-up for chest pain with her. Ultimately her EKG showed no acute change from previous and her cardiac biomarker was negative. Because of the timing of the day I also [facility] have agreed to evaluate the patient in the emergency department for further management and disposition. The patient was treated with aspirin as well as blood pressure medication. Triage Nursing notes reviewed. Prior medical records reviewed Vital Signs: reviewed and remarkable for elevated blood pressure. Differential diagnosis: Cardiac ischemia, aortic dissection, pulmonary embolism, pneumothorax, pneumonia, pericarditis, myocarditis, esophageal rupture, GERD, cholecystitis, pancreatitis, musculoskeletal, as well as other pathologies. ER treatment provided: See below Diagnostics interpreted by me: ECG: EKG was obtained in the emergency department. My interpretation is normal sinus rhythm at 61 bpm. There was no ectopy. An incomplete right bundle branch block pattern was noted. This was compared to a tracing from February 05 2017. No specific changes were noted. Cardiac Monitoring: An order was placed for continuous cardiac monitoring. The monitor shows a rate of 65 bpm with sinus rhythm. Laboratory studies: As stated above and show below. Imaging studies: See below Consultation(s): [id number]: I discussed this case with Dr. Arriola who [facility]. Past Med/Surg History Medical History Acute sinusitis Basal cell carcinoma Cat-scratch disease Cellulitis of hand Dysfunction of both eustachian tubes Endometrial polyp Essential hypertension Extrinsic asthma Hypothyroid Lumbar canal stenosis Lump of skin Muscle spasm Otitis media Pneumonia Vaginitis Surgical History H/O section Family History Other Alzheimer disease Social History (Reviewed 05/20/21 @ 16:21 by COLE Ruiz Smoking Status: Never smoker Hx Alcohol Use: Yes Alcohol type: wine Hx Substance Use: No Preferred Language: Jamaican Communication Ability: Effective Pharmaceutical Physician Required: No Beliefs That Will Affect Care: None Current Living Situation: Family Current Living Situation Comment: Lives with sister Other Information That Helps Us Care for You: No Feels Safe at Home: Yes Safety Concerns: Feels Safe At This Time Assistive Devices: Glasses Allergies Allergies Allergy/AdvReac Type Severity Reaction Status Date / Time isopropyl alcohol Allergy Intermediate RED Verified 08/14/20 08:04 BULLET-LIKE RASH codeine Allergy Unknown n/v Verified 08/14/20 08:04 sulfamethoxazole Allergy Unknown Verified 02/15/21 16:12 [From Bactrim] trimethoprim [From Bactrim] Allergy Unknown Verified 02/15/21 16:12 acetaminophen AdvReac Unknown doesn't Verified 08/14/20 08:04 want, feel funny lisinopril AdvReac Unknown cough Verified 08/14/20 08:04 meperidine AdvReac Unknown n/v/diaphor Verified 08/14/20 08:04 etic Sulfa (Sulfonamide AdvReac Unknown N/V Verified 08/14/20 08:04 Antibiotics) Home Meds Home Medications Medication Instructions Recorded Confirmed ascorbate calcium (vitamin C) 500 500 mg PO DAILY 05/19/19 02/15/21 mg tablet aspirin 81 mg chewable tablet 81 mg PO DAILY 05/19/19 02/15/21 coenzyme Q10 10 mg capsule 10 mg PO TID 05/19/19 02/15/21 losartan 50 mg tablet 50 mg PO QAM 05/19/19 02/15/21 cholecalciferol (vitamin D3) 125 mcg PO DAILY 02/15/21 02/15/21 [Vitamin D3] hydrochlorothiazide 12.5 mg PO DAILY PRN 02/15/21 02/15/21 levothyroxine 112 mcg PO DAILY 02/15/21 02/15/21 losartan 100 mg PO HS 02/15/21 02/15/21 Results & Data (ED) Vital Signs Vital Signs - 24 hr 02/15/21 15:41 02/15/21 16:20 Temperature 36.0 C L Temperature Source Temporal Artery Scan Pulse Rate 60 61 Pulse Rate [Apical] 73 Respiratory Rate 18 20 Blood Pressure 199/85 H Blood Pressure [Left Arm] 182/87 H Blood Pressure Mean 123 Blood Pressure Mean [Left Arm] 118 Blood Pressure Position [Left Arm] Sitting Pulse Oximetry 99 99 Oxygen Delivery Method Room Air Room Air Sepsis Recent Fever Within 48 Hours No Sepsis New/Unexplained Change in Mental Status N/A Sepsis Action Taken by Nursing No Action Required Home Medications Current Medication List: was personally reviewed by me Laboratory Data Attestation: I reviewed the patient's lab results. Result diagrams: 02/16/21 06:11 02/16/21 06:16 Lab Results 02/15/21 02/15/21 02/15/21 Range/Units 16:22 16:22 16:22 WBC 7.68 (4.8-10.8) K/uL RBC 5.11 (4.2-5.4) M/uL Hgb 16.1 H (12.0-16.0) g/dL Hct 47.3 H (37-47) % MCV 92.6 (80-100) fL MCH 31.5 (25-34) pg MCHC 34.0 (32-36) g/dL RDW Std Deviation 43.7 (36.4-46.3) fL RDW Coeff of [place]omo 12.8 (11.5-14.5) % Plt Count 297 (130-400) K/uL MPV 10.8 H (7.4-10.4) fL Immature Gran % (Auto) 0.1 % Neut % (Auto) 50.1 % Lymph % (Auto) 34.1 % [place] % (Auto) 9.8 % Eos % (Auto) 5.5 % Baso % (Auto) 0.4 % Neut # (Auto) 3.85 (1.4-6.5) K/uL Lymph # (Auto) 2.62 (1.2-3.4) K/uL [place] # (Auto) 0.75 H (0.11-0.59) K/uL Eos # (Auto) 0.42 (0-0.5) K/uL Baso # (Auto) 0.03 (0-0.2) K/uL Immature Gran # (Auto) 0.01 (0.00-0.02) K/uL PT Cancelled INR Cancelled APTT Cancelled PTT Ratio Cancelled Sodium 141 (136-145) mmol/L Potassium 4.6 (3.5-5.1) mmol/L Chloride 110 H (98-107) mmol/L Carbon Dioxide 28 (21-32) mmol/L Anion Gap 3.0 (3-11) BUN 12 (7-18) mg/dl Creatinine 0.74 (0.6-1.2) mg/dl Est Cr Clr Drug Dosing 64.5 ml/min Est GFR ( Amer) 91.9 ml/min Est GFR (Non-Af Amer) 79.3 ml/min BUN/Creatinine Ratio 16.6 (10-20) Glucose 97 (70-99) mg/dl Calcium 10.5 H (8.5-10.1) mg/dl Total Bilirubin 0.6 (0.2-1) mg/dl AST 26 (15-37) U/L ALT 36 (12-78) U/L Alkaline Phosphatase 86 (45-117) U/L Troponin I < 0.015 (0-0.045) ng/ml Total Protein 7.5 (6.4-8.2) gm/dl Albumin 3.9 (3.4-5.0) gm/dl Globulin 3.6 (2.5-4.0) gm/dl Albumin/Globulin Ratio 1.1 (0.9-2) Lipase 103 (73-393) U/L Specimen Hemolysis COVID-19 Eval Order SARS-CoV-2 (PCR) (Negative) 02/15/21 02/15/21 Range/Units 17:42 17:42 WBC (4.8-10.8) K/uL RBC (4.2-5.4) M/uL Hgb (12.0-16.0) g/dL Hct (37-47) % MCV (80-100) fL MCH (25-34) pg MCHC (32-36) g/dL RDW Std Deviation (36.4-46.3) fL RDW Coeff of [place]omo (11.5-14.5) % Plt Count (130-400) K/uL MPV (7.4-10.4) fL Immature Gran % (Auto) % Neut % (Auto) % Lymph % (Auto) % [place] % (Auto) % Eos % (Auto) % Baso % (Auto) % Neut # (Auto) (1.4-6.5) K/uL Lymph # (Auto) (1.2-3.4) K/uL [place] # (Auto) (0.11-0.59) K/uL Eos # (Auto) (0-0.5) K/uL Baso # (Auto) (0-0.2) K/uL Immature Gran # (Auto) (0.00-0.02) K/uL PT INR APTT PTT Ratio Sodium (136-145) mmol/L Potassium (3.5-5.1) mmol/L Chloride (98-107) mmol/L Carbon Dioxide (21-32) mmol/L Anion Gap (3-11) BUN (7-18) mg/dl Creatinine (0.6-1.2) mg/dl Est Cr Clr Drug Dosing ml/min Est GFR ( Amer) ml/min Est GFR (Non-Af Amer) ml/min BUN/Creatinine Ratio (10-20) Glucose (70-99) mg/dl Calcium (8.5-10.1) mg/dl Total Bilirubin (0.2-1) mg/dl AST (15-37) U/L ALT (12-78) U/L Alkaline Phosphatase (45-117) U/L Troponin I (0-0.045) ng/ml Total Protein (6.4-8.2) gm/dl Albumin (3.4-5.0) gm/dl Globulin (2.5-4.0) gm/dl Albumin/Globulin Ratio (0.9-2) Lipase (73-393) U/L Specimen Hemolysis COVID-19 Eval Order Covid19 at [facility] SARS-CoV-2 (PCR) NEGATIVE (Negative) Administered Medications Ascorbic Acid (Ascorbic Acid 500 Mg Tab) 500 mg PO DAILY DAVID Stop: 03/18/21 08:59 Last Admin: 02/16/21 07:52 Dose: 500 mg Documented by: [id number] Aspirin (Aspirin 81 Mg Ectab) 81 mg PO DAILY DAVID Stop: 03/18/21 08:59 Last Admin: 02/16/21 07:52 Dose: 81 mg Documented by: [id number] Levothyroxine Sodium (Levothyroxine Sodium 112 Mcg Tablet) 112 mcg PO DAILYBB DAVID Stop: 03/18/21 06:29 Last Admin: 02/16/21 05:34 Dose: 112 mcg Documented by: [id number] Losartan Potassium (Losartan Potassium 50 Mg Tab) 50 mg PO QAM DAVID Stop: 03/18/21 08:59 Last Admin: 02/16/21 07:52 Dose: 50 mg Documented by: [id number] Losartan Potassium (Losartan Potassium 50 Mg Tab) 100 mg PO HS [facility] Stop: 03/17/21 21:31 Last Admin: 02/15/21 22:08 Dose: 100 mg Documented by: [id number] Vitamin D (Cholecalciferol 1,000 Units 25 Mcg Tab) 5,000 units PO DAILY DAVID Stop: 03/18/21 08:59 Last Admin: 02/16/21 07:52 Dose: 5,000 units Documented by: [id number] Discontinued Medications Aspirin (Aspirin Chew 324 Mg) 324 mg PO NOW STA Stop: 02/15/21 15:50 Last Admin: 02/15/21 16:29 Dose: 324 mg Documented by: [id number] Losartan Potassium (Losartan Potassium 50 Mg Tab) 50 mg PO ONE ONE Stop: 02/15/21 17:44 Last Admin: 02/15/21 18:18 Dose: 50 mg Documented by: [id number] Imaging Data Radiologist's Impression: Chest X-Ray 02/15/21 15:49 XR chest 1V portable CLINICAL HISTORY: Chest Pain COMPARISON STUDY: Chest radiograph February 05, 2018. FINDINGS: Lung volumes are normal. Lungs are clear. There is no pneumothorax or pleural effusion. Cardiac size is normal. Mediastinal contours are normal. There is no evidence for pulmonary edema. IMPRESSION: No acute cardiopulmonary findings. ACT 112: Negative or not required by law. Electronically signed by: Ronnie Cano M.D. 02/15/2021 4:29 PM Discharge Plan Visit Data Chief Complaint: Chest Pain Stated Complaint: CHEST PAIN DOC REF ED Provider: Tj Shelby Discharge Problem: Chest pain Patient Disposition: Admitted As Inpatient Condition: Good Discharge Instructions Interventions: ED Discharge Assessment Last Done: 02/15/21 20:12
--- NOTE | 2021-02-15 16:30 | XRay Report ---
XR chest 1V portable CLINICAL HISTORY: Chest Pain COMPARISON STUDY: Chest radiograph February 05, 2018. FINDINGS: Lung volumes are normal. Lungs are clear. There is no pneumothorax or pleural effusion. Car diac size is normal. Mediastinal contours are normal. There is no evidence for pulmonary edema. IMPRESSION: No acute cardiopulmonary findings. ACT 112: Negative or not required by law. Electronically signed by: Ronnie Cano M.D. 02/15/2021 4:29 PM
[2021-02-15 16:33] LABS: Basophils # (auto) 0.03 K/uL (0-0.2); Basophils % (auto) 0.4 %; Eosinophils # (auto) 0.42 K/uL (0-0.5); Eosinophils % (auto) 5.5 %; Hematocrit (blood only) 47.3 % (37-47); Hemoglobin 16.1 g/dL (12.0-16.0); Immature Granulocytes # (auto) 0.01 K/uL (0.00-0.02); Immature Granulocytes % (auto) 0.1 %; Lymphocytes # (auto) 2.62 K/uL (1.2-3.4); Lymphocytes % (auto) 34.1 %; Mean Corpuscular Hemoglobin 31.5 pg (25-34); Mean Corpuscular Volume 92.6 fL (80-100); Mean Platelet Volume 10.8 fL (7.4-10.4); Monocytes # (auto) 0.75 K/uL (0.11-0.59); Monocytes % (auto) 9.8 %; Neutrophils # (auto) 3.85 K/uL (1.4-6.5); Neutrophils % (auto) 50.1 %; Platelet Count 297 K/uL (130-400); RDW Coefficient of Variation 12.8 % (11.5-14.5); RDW Standard Deviation 43.7 fL (36.4-46.3); Red Blood Count 5.11 M/uL (4.2-5.4); White Blood Count 7.68 K/uL (4.8-10.8)
[2021-02-15 17:00] LABS: Alanine Aminotransferase 36 U/L (12-78); Albumin Level 3.9 gm/dl (3.4-5.0); Aspartate Aminotransferase 26 U/L (15-37); BUN Creatinine Ratio 16.6 (10-20); Blood Urea Nitrogen 12 mg/dl (7-18); Calcium 10.5 mg/dl (8.5-10.1); Carbon Dioxide 28 mmol/L (21-32); Chloride 110 mmol/L (98-107); Creatinine Clr Calc Pharmacy 64.5 ml/min; Est GFR (African American) 91.9 ml/min; Est GFR (Non-African American) 79.3 ml/min; Glucose 97 mg/dl (70-99); Lipase 103 U/L (73-393); Potassium 4.6 mmol/L (3.5-5.1); Sodium 141 mmol/L (136-145)
[2021-02-15 17:06] LABS: Albumin Globulin Ratio 1.1 (0.9-2); Alkaline Phosphatase 86 U/L (45-117); Bilirubin,Total 0.6 mg/dl (0.2-1); Globulin 3.6 gm/dl (2.5-4.0); Total Protein 7.5 gm/dl (6.4-8.2); Troponin I < 0.015 ng/ml (0-0.045)
[2021-02-15] MEDS ORDERED: LOSARTAN POTASSIUM 50 MG TAB PO ONE (17:43)
--- NOTE | 2021-02-15 17:53 | History & Physical Report ---
Date of Service February 15, 2021 Assessment & Plan (1) Chest pain: Chest pain that radiates to her shoulder plus exertional dyspnea, risk factors of hypertension continue aspirin 81 mg a day trend serial troponins perform dobutamine stress echocardiogram if troponins are not elevated or EKG shows any acute coronary current of injury Eventual return to follow-up with Dr. Velázquez (2) Hypertension: Patient is on losartan 50 mg in the morning 100 mg at night (3) Hypothyroidism: Synthroid made maintained at 112 mcg, check a TSH in the morning (4) Hypercalcemia: Has had low level hypercalcemia on different occasions throughout her medical history we will check a PTH and ionized calcium with morning labs (5) DVT prophylaxis: DVT prevention early ambulation History of Present Illness Primary Care Provider: RYAN Diaz 75-year-old female who presented to the emergency department for an evaluation of chest pain. The patient describes chest pain in her left upper chest that radiates to her left shoulder. She states the pain is been intermittent. The pain started earlier this week. She denies having any nausea but does complain of some dyspnea. She was seen by her primary care physician. They then called the patient's primary case management assistant who recommended that the patient come to the emergency department for further evaluation. She did take aspirin previously for this pain which did help somewhat. She denies having any lower extremity weakness or swelling. She states the pain began at rest. The patient has never had a cardiac stent in the past. She denies having any abdominal pain. She denies having any back pain. She did note that her blood pressure was elevated. The patient does state that she has been compliant with all of her outpatient medication regimen for htn . Allergies Allergy/AdvReac Type Severity Reaction Status Date / Time isopropyl alcohol Allergy Intermediate RED Verified 08/14/20 08:04 BULLET-LIKE RASH codeine Allergy Unknown n/v Verified 08/14/20 08:04 sulfamethoxazole Allergy Unknown Verified 02/15/21 16:12 [From Bactrim] trimethoprim [From Bactrim] Allergy Unknown Verified 02/15/21 16:12 acetaminophen AdvReac Unknown doesn't Verified 08/14/20 08:04 want, feel funny lisinopril AdvReac Unknown cough Verified 08/14/20 08:04 meperidine AdvReac Unknown n/v/diaphor Verified 08/14/20 08:04 etic Sulfa (Sulfonamide AdvReac Unknown N/V Verified 08/14/20 08:04 Antibiotics) Home Medications Medication Instructions Recorded Confirmed Type ascorbate calcium (vitamin C) 500 500 mg PO DAILY 05/19/19 02/15/21 History mg tablet aspirin 81 mg chewable tablet 81 mg PO DAILY 05/19/19 02/15/21 History coenzyme Q10 10 mg capsule 10 mg PO TID 05/19/19 02/15/21 History losartan 50 mg tablet 50 mg PO QAM 05/19/19 02/15/21 History cholecalciferol (vitamin D3) 125 mcg PO DAILY 02/15/21 02/15/21 History [Vitamin D3] hydrochlorothiazide 12.5 mg PO DAILY PRN 02/15/21 02/15/21 History levothyroxine 112 mcg PO DAILY 02/15/21 02/15/21 History losartan 100 mg PO HS 02/15/21 02/15/21 History Past Med/Surg History Medical History Acute sinusitis Basal cell carcinoma Cat-scratch disease Cellulitis of hand Dysfunction of both eustachian tubes Endometrial polyp Essential hypertension Extrinsic asthma Hypothyroid Lumbar canal stenosis Lump of skin Muscle spasm Otitis media Pneumonia Vaginitis Surgical History H/O section Family History Other Alzheimer disease Social History Smoking Status: Never smoker Hx Alcohol Use: No Preferred Language: Occitan Feels Safe at Home: Yes Review of Systems Review of Systems: Mild distress and fatigue no headache, blurry or double vision no speech or swallowing issues no chest pain, pressure or palpitations no shortness of breath, cough or wheezes no abdominal pain, nausea or vomiting, diarrhea or constipation no dysuria, hematuria or frequency no focal joint pain or swelling no back pain, CVA tenderness or radicular pain no bruising, bleeding or rashes no focal signs of weakness or numbness or altered sensation no complaints of anxiety or depression.. Physical Exam Physical Exam: The patient appeared well nourished and normally developed. Vital signs as documented. Head exam is normocephalic atraumatic Neck is without JVD, thyromegaly, or carotid bruits. Lungs are clear to auscultation, no focal loss of breath sounds Cardiac exam, Rhythm is regular.. No murmurs, rubs or gallops. Abdominal exam reveals normal bowel sounds, soft non tender, no masses Extremities are nonedematous and both pedal pulses are present Neurologic exam is alert and oriented, no focal loss of strength or sensation Skin is without bruises or rashes Psychologically is without concerns for anxiety or depression Results & Data Results & Data ([facility]) Vital Signs (Past 12 Hours) Vital Signs Temp Pulse Pulse Resp BP BP Pulse Ox 02/15/21 16:20 61 73 20 182/87 H 99 02/15/21 15:41 96.8 F L 60 18 199/85 H 99 Chest X-Ray 02/15/21 15:49 XR chest 1V portable CLINICAL HISTORY: Chest Pain COMPARISON STUDY: Chest radiograph February 05, 2018. FINDINGS: Lung volumes are normal. Lungs are clear. There is no pneumothorax or pleural effusion. Cardiac size is normal. Mediastinal contours are normal. There is no evidence for pulmonary edema. IMPRESSION: No acute cardiopulmonary findings. Electronically signed by: Ronnie Cano M.D. 02/15/2021 4:29 PM Normal sinus rhythm on EKG with incomplete right bundle no acute current of injury PG Care Time/CCT Total # of Minutes Spent Total Time Spent with Patient: Total time spent is greater than 50% in coordination of care (as documented) at patient's floor/unit and/or counseling patient: Coding Level of Care Code 54981 OBS Care - Level 3 Diagnoses Chest pain R07.9 Hypertension I10 Hypothyroidism E03.9 Hypercalcemia E83.52 DVT prophylaxis Z29.9
--- NOTE | 2021-02-15 18:44 | Electrocardiogram Report ---
Test Reason : Blood Pressure : / mmHG Vent. Rate : 061 BPM Atrial Rate : 061 BPM P-R Int : 180 ms QRS Dur : 104 ms QT Int : 400 ms P-R-T Axes : 046 -36 044 degrees QTc Int : 402 ms Normal sinus rhythm Left axis deviation Incomplete right bundle branch block Poor R-wave progression: anterior CA vs. lead placement vs. LVH Abnormal ECG When compared with ECG of 05-FEB-2018 14:22, Vent. rate has decreased BY 30 BPM Incomplete right bundle branch block is now Present Confirmed by Jeovanny Delgadillo ([id number]) on 02/15/2021 6:44:22 PM Referred By: Confirmed By:Mik Delgadillo
[2021-02-15] MEDS ORDERED: ONDANSETRON INJ 2 MG/ML 2 ML VIAL IV PRN (21:32)
[2021-02-15] MEDS ORDERED: LOSARTAN POTASSIUM 50 MG TAB PO SCH (21:32)
[2021-02-15] MEDS ORDERED: hydrALAZINE HCL 20 MG/ML VIAL IV PRN (21:32)
[2021-02-15] MEDS ORDERED: ACETAMINOPHEN 325 MG TAB PO PRN (21:32)
[2021-02-15] MEDS ORDERED: ALUMINUM/MAGNESIUM SUSP 30 ML UDC PO PRN (21:32)
[2021-02-15] MEDS ORDERED: NITROGLYCERIN SL 0.4 MG/TAB TAB SL PRN (21:32)
[2021-02-15] MEDS ORDERED: MoRPHine SULFATE 2 MG/ML CARP IV PRN (21:32)
[2021-02-16] MEDS ORDERED: LEVOTHYROXINE SODIUM 112 MCG TABLET PO SCH (06:30)
[2021-02-16 06:31] LABS: Hemoglobin 15.3 g/dL (12.0-16.0); Mean Corpuscular Hemoglobin 31.3 pg (25-34); Mean Corpuscular Hgb Conc 34.8 g/dL (32-36); Mean Platelet Volume 10.8 fL (7.4-10.4); Platelet Count 266 K/uL (130-400); RDW Coefficient of Variation 12.7 % (11.5-14.5); RDW Standard Deviation 41.5 fL (36.4-46.3); Red Blood Count 4.89 M/uL (4.2-5.4); White Blood Count 8.26 K/uL (4.8-10.8)
[2021-02-16 07:13] LABS: BUN Creatinine Ratio 20.1 (10-20); Est GFR (African American) 102.8 ml/min; Est GFR (Non-African American) 88.7 ml/min
[2021-02-16] MEDS ORDERED: DOBUTamine HCL 12.5 MG/ML 20 ML VIAL IV ONE (07:58)
[2021-02-16] MEDS ORDERED: ATROPINE SULFATE 0.1 MG/ML 10ML SYR IV ONE (07:58)
[2021-02-16] MEDS ORDERED: METOPROLOL TARTRATE 1 MG/ML VIAL IV ONE (07:58)
--- NOTE | 2021-02-16 08:00 | Hospitalist Progress Note ---
Date of Service February 16, 2021 Assessment & Plan (1) Chest pain: Presented with left sided chest pressure with radiation to shoulder. +JAIN. Hx HTN and reported to improve with ASA Trop negative x 2 -- will add third Dobutamine stress echo today Follows with Dr. Mitchell Lipase wnl CXR without acute process Chest pain that radiates to her shoulder plus exertional dyspnea, risk factors of hypertension continue aspirin 81 mg a day trend serial troponins perform dobutamine stress echocardiogram if troponins are not elevated or EKG shows any acute coronary current of injury Eventual return to follow-up with Dr. Velázquez (2) Hypertension: BP 159/84 and continued on losartan 50 mg in the morning 100 mg at night HCTZ being held for hypercalcemia Will discuss with Dr. Mitchell regarding alternative agent (3) Hypothyroidism: Synthroid made maintained at 112 mcg Adding TSh to AM labs (4) Hypercalcemia: Elevated on admission On HCTZ which could be contributing Will add ionized calcium and PTH to AM labs (5) DVT prophylaxis: DVT prevention early ambulation Admission and Anticipated Discharge Date Admission Date: February 15, 2021 Results & Data Results & Data ([facility]) Vital Signs (Past 12 Hours) Vital Signs Temp Pulse Pulse Resp BP BP BP 02/16/21 07:37 36.7 C 69 14 159/84 H 02/16/21 04:26 54 L 02/16/21 03:43 36.4 C L 71 18 121/68 02/15/21 23:00 36.7 C 53 L 18 181/92 H 02/15/21 21:33 36.6 C 61 18 197/82 H 02/15/21 20:00 74 16 146/88 H Pulse Ox 02/16/21 07:37 97 02/16/21 04:26 02/16/21 03:43 98 02/15/21 23:00 96 02/15/21 21:33 96 02/15/21 20:00 Laboratory Results 02/16/21 02/16/21 02/16/21 Range/Units 06:16 06:11 06:11 WBC 8.26 (4.8-10.8) K/uL RBC 4.89 (4.2-5.4) M/uL Hgb 15.3 (12.0-16.0) g/dL Hct 44.0 (37-47) % MCV 90.0 (80-100) fL MCH 31.3 (25-34) pg MCHC 34.8 (32-36) g/dL RDW Std Deviation 41.5 (36.4-46.3) fL RDW Coeff of Palomo 12.7 (11.5-14.5) % Plt Count 266 (130-400) K/uL MPV 10.8 H (7.4-10.4) fL Immature Gran % (Auto) % Neut % (Auto) % Lymph % (Auto) % [place] % (Auto) % Eos % (Auto) % Baso % (Auto) % Neut # (Auto) (1.4-6.5) K/uL Lymph # (Auto) (1.2-3.4) K/uL [place] # (Auto) (0.11-0.59) K/uL Eos # (Auto) (0-0.5) K/uL Baso # (Auto) (0-0.2) K/uL Immature Gran # (Auto) (0.00-0.02) K/uL PT INR APTT PTT Ratio Sodium 142 (136-145) mmol/L Potassium 4.2 (3.5-5.1) mmol/L Chloride 112 H (98-107) mmol/L Carbon Dioxide 25 (21-32) mmol/L Anion Gap 5.0 (3-11) BUN 12 (7-18) mg/dl Creatinine 0.61 (0.6-1.2) mg/dl Est Cr Clr Drug Dosing 78.0 ml/min Est GFR ( Amer) 102.8 ml/min Est GFR (Non-Af Amer) 88.7 ml/min BUN/Creatinine Ratio 20.1 H (10-20) Glucose 103 H (70-99) mg/dl Calcium 10.0 (8.5-10.1) mg/dl Total Bilirubin (0.2-1) mg/dl AST (15-37) U/L ALT (12-78) U/L Alkaline Phosphatase (45-117) U/L Troponin I (0-0.045) ng/ml Total Protein (6.4-8.2) gm/dl Albumin (3.4-5.0) gm/dl Globulin (2.5-4.0) gm/dl Albumin/Globulin Ratio (0.9-2) Lipase (73-393) U/L Specimen Hemolysis COVID-19 Eval Order SARS-CoV-2 (PCR) (Negative) 02/15/21 02/15/21 02/15/21 Range/Units 21:49 18:56 17:42 WBC (4.8-10.8) K/uL RBC (4.2-5.4) M/uL Hgb (12.0-16.0) g/dL Hct (37-47) % MCV (80-100) fL MCH (25-34) pg MCHC (32-36) g/dL RDW Std Deviation (36.4-46.3) fL RDW Coeff of Palomo (11.5-14.5) % Plt Count (130-400) K/uL MPV (7.4-10.4) fL Immature Gran % (Auto) % Neut % (Auto) % Lymph % (Auto) % [place] % (Auto) % Eos % (Auto) % Baso % (Auto) % Neut # (Auto) (1.4-6.5) K/uL Lymph # (Auto) (1.2-3.4) K/uL [place] # (Auto) (0.11-0.59) K/uL Eos # (Auto) (0-0.5) K/uL Baso # (Auto) (0-0.2) K/uL Immature Gran # (Auto) (0.00-0.02) K/uL PT 10.0 INR 1.0 APTT 25.0 PTT Ratio 1.0 Sodium (136-145) mmol/L Potassium (3.5-5.1) mmol/L Chloride (98-107) mmol/L Carbon Dioxide (21-32) mmol/L Anion Gap (3-11) BUN (7-18) mg/dl Creatinine (0.6-1.2) mg/dl Est Cr Clr Drug Dosing ml/min Est GFR ( Amer) ml/min Est GFR (Non-Af Amer) ml/min BUN/Creatinine Ratio (10-20) Glucose (70-99) mg/dl Calcium (8.5-10.1) mg/dl Total Bilirubin (0.2-1) mg/dl AST (15-37) U/L ALT (12-78) U/L Alkaline Phosphatase (45-117) U/L Troponin I < 0.015 (0-0.045) ng/ml Total Protein (6.4-8.2) gm/dl Albumin (3.4-5.0) gm/dl Globulin (2.5-4.0) gm/dl Albumin/Globulin Ratio (0.9-2) Lipase (73-393) U/L Specimen Hemolysis COVID-19 Eval Order SARS-CoV-2 (PCR) NEGATIVE (Negative) 02/15/21 02/15/21 02/15/21 Range/Units 17:42 16:22 16:22 WBC (4.8-10.8) K/uL RBC (4.2-5.4) M/uL Hgb (12.0-16.0) g/dL Hct (37-47) % MCV (80-100) fL MCH (25-34) pg MCHC (32-36) g/dL RDW Std Deviation (36.4-46.3) fL RDW Coeff of Palomo (11.5-14.5) % Plt Count (130-400) K/uL MPV (7.4-10.4) fL Immature Gran % (Auto) % Neut % (Auto) % Lymph % (Auto) % [place] % (Auto) % Eos % (Auto) % Baso % (Auto) % Neut # (Auto) (1.4-6.5) K/uL Lymph # (Auto) (1.2-3.4) K/uL [place] # (Auto) (0.11-0.59) K/uL Eos # (Auto) (0-0.5) K/uL Baso # (Auto) (0-0.2) K/uL Immature Gran # (Auto) (0.00-0.02) K/uL PT Cancelled INR Cancelled APTT Cancelled PTT Ratio Cancelled Sodium 141 (136-145) mmol/L Potassium 4.6 (3.5-5.1) mmol/L Chloride 110 H (98-107) mmol/L Carbon Dioxide 28 (21-32) mmol/L Anion Gap 3.0 (3-11) BUN 12 (7-18) mg/dl Creatinine 0.74 (0.6-1.2) mg/dl Est Cr Clr Drug Dosing 64.5 ml/min Est GFR ( Amer) 91.9 ml/min Est GFR (Non-Af Amer) 79.3 ml/min BUN/Creatinine Ratio 16.6 (10-20) Glucose 97 (70-99) mg/dl Calcium 10.5 H (8.5-10.1) mg/dl Total Bilirubin 0.6 (0.2-1) mg/dl AST 26 (15-37) U/L ALT 36 (12-78) U/L Alkaline Phosphatase 86 (45-117) U/L Troponin I < 0.015 (0-0.045) ng/ml Total Protein 7.5 (6.4-8.2) gm/dl Albumin 3.9 (3.4-5.0) gm/dl Globulin 3.6 (2.5-4.0) gm/dl Albumin/Globulin Ratio 1.1 (0.9-2) Lipase 103 (73-393) U/L Specimen Hemolysis COVID-19 Eval Order Covid19 at [facility] SARS-CoV-2 (PCR) (Negative) 02/15/21 Range/Units 16:22 WBC 7.68 (4.8-10.8) K/uL RBC 5.11 (4.2-5.4) M/uL Hgb 16.1 H (12.0-16.0) g/dL Hct 47.3 H (37-47) % MCV 92.6 (80-100) fL MCH 31.5 (25-34) pg MCHC 34.0 (32-36) g/dL RDW Std Deviation 43.7 (36.4-46.3) fL RDW Coeff of Palomo 12.8 (11.5-14.5) % Plt Count 297 (130-400) K/uL MPV 10.8 H (7.4-10.4) fL Immature Gran % (Auto) 0.1 % Neut % (Auto) 50.1 % Lymph % (Auto) 34.1 % [place] % (Auto) 9.8 % Eos % (Auto) 5.5 % Baso % (Auto) 0.4 % Neut # (Auto) 3.85 (1.4-6.5) K/uL Lymph # (Auto) 2.62 (1.2-3.4) K/uL [place] # (Auto) 0.75 H (0.11-0.59) K/uL Eos # (Auto) 0.42 (0-0.5) K/uL Baso # (Auto) 0.03 (0-0.2) K/uL Immature Gran # (Auto) 0.01 (0.00-0.02) K/uL PT INR APTT PTT Ratio Sodium (136-145) mmol/L Potassium (3.5-5.1) mmol/L Chloride (98-107) mmol/L Carbon Dioxide (21-32) mmol/L Anion Gap (3-11) BUN (7-18) mg/dl Creatinine (0.6-1.2) mg/dl Est Cr Clr Drug Dosing ml/min Est GFR ( Amer) ml/min Est GFR (Non-Af Amer) ml/min BUN/Creatinine Ratio (10-20) Glucose (70-99) mg/dl Calcium (8.5-10.1) mg/dl Total Bilirubin (0.2-1) mg/dl AST (15-37) U/L ALT (12-78) U/L Alkaline Phosphatase (45-117) U/L Troponin I (0-0.045) ng/ml Total Protein (6.4-8.2) gm/dl Albumin (3.4-5.0) gm/dl Globulin (2.5-4.0) gm/dl Albumin/Globulin Ratio (0.9-2) Lipase (73-393) U/L Specimen Hemolysis COVID-19 Eval Order SARS-CoV-2 (PCR) (Negative) Diagnostic Findings Chest X-Ray 02/15/21 15:49 XR chest 1V portable CLINICAL HISTORY: Chest Pain COMPARISON STUDY: Chest radiograph February 05, 2018. FINDINGS: Lung volumes are normal. Lungs are clear. There is no pneumothorax or pleural effusion. Cardiac size is normal. Mediastinal contours are normal. There is no evidence for pulmonary edema. IMPRESSION: No acute cardiopulmonary findings. ACT 112: Negative or not required by law. Electronically signed by: Ronnie Cano M.D. 02/15/2021 4:29 PM PG Care Time/CCT Total # of Minutes Spent Total Time Spent with Patient: Total time spent is greater than 50% in coordination of care (as documented) at patient's floor/unit and/or counseling patient: Coding Diagnoses Chest pain R07.9 Hypertension I10 Hypothyroidism E03.9 Hypercalcemia E83.52 DVT prophylaxis Z29.9
[2021-02-16] MEDS ORDERED: LOSARTAN POTASSIUM 50 MG TAB PO SCH (09:00)
[2021-02-16] MEDS ORDERED: ASPIRIN 81 MG ECTAB PO SCH (09:00)
[2021-02-16] MEDS ORDERED: ASCORBIC ACID 500 MG TAB PO SCH (09:00)
[2021-02-16] MEDS ORDERED: CHOLECALCIFEROL 1,000 UNITS 25 MCG TAB PO SCH (09:00)
[2021-02-16] MEDS ORDERED: IBUPROFEN 600 MG TAB PO STA (09:56)
[2021-02-16 10:51] LABS: Magnesium 2.1 mg/dl (1.8-2.4); Troponin I < 0.015 ng/ml (0-0.045)
--- NOTE | 2021-02-16 10:58 | XCELERA ---
[id number]
--- NOTE | 2021-02-16 11:38 | Electrocardiogram Report ---
Test Reason : Blood Pressure : / mmHG Vent. Rate : 067 BPM Atrial Rate : 067 BPM P-R Int : 182 ms QRS Dur : 104 ms QT Int : 406 ms P-R-T Axes : 051 -39 039 degrees QTc Int : 429 ms Normal sinus rhythm Left axis deviation Poor R wave progression, consider anterior MO vs. lead placement vs. LVH Abnormal ECG When compared with ECG of 15-FEB-2021 15:55, Incomplete right bundle branch block is no longer Present Confirmed by Jeovanny Delgadillo ([id number]) on 02/16/2021 11:38:11 AM Referred By: Jesse Mitchell Confirmed By:Mik Delgadillo
--- NOTE | 2021-02-16 12:40 | Discharge Summary ---
Date of Service February 16, 2021 Admission HPI Per Admitting Provider Primary Care Provider: RYAN Diaz 75-year-old female who presented to the emergency department for an evaluation of chest pain. The patient describes chest pain in her left upper chest that radiates to her left shoulder. She states the pain is been intermittent. The pain started earlier this week. She denies having any nausea but does complain of some dyspnea. She was seen by her primary care physician. They then called the patient's primary manager sas who recommended that the patient come to the emergency department for further evaluation. She did take aspirin previously for this pain which did help somewhat. She denies having any lower extremity weakness or swelling. She states the pain began at rest. The patient has never had a cardiac stent in the past. She denies having any abdominal pain. She denies having any back pain. She did note that her blood pressure was elevated. The patient does state that she has been compliant with all of her outpatient medication regimen for htn . Admission Exam Per Admitting Provider he patient appeared well nourished and normally developed. Vital signs as documented. Head exam is normocephalic atraumatic Neck is without JVD, thyromegaly, or carotid bruits. Lungs are clear to auscultation, no focal loss of breath sounds Cardiac exam, Rhythm is regular.. No murmurs, rubs or gallops. Abdominal exam reveals normal bowel sounds, soft non tender, no masses Extremities are nonedematous and both pedal pulses are present Neurologic exam is alert and oriented, no focal loss of strength or sensation Skin is without bruises or rashes Psychologically is without concerns for anxiety or depression Principal Diagnosis Chest pain Discharge Exam Constitutional WD/WN, vitals as above no acute distress Eyes PERRL, conjunctivae normal, anicteric sclerae ENMT external ear and nose normal, oropharynx normal Neck trachea midline, no thyromegaly Respiratory normal respiratory effort, lungs clear to auscultation Cardiovascular Rate/Rhythm: regular rate and regular rhythm Heart Sounds: no murmur Vessels: no JVD Extremities: no calf tenderness and no edema Gastrointestinal (Abdomen) normal bowel sounds, soft, nontender, no hepatosplenomegaly Musculoskeletal no cyanosis or clubbing, extremities motor strength 5/5 Skin no rashes, warm and dry Neurologic patellar DTR's 2+ bilat, sensation intact Psychiatric A+Ox3, euthymic affect Lymphatic no cervical or axillary lymphadenopathy Discharge Data Allergies Allergy/AdvReac Type Severity Reaction Status Date / Time isopropyl alcohol Allergy Intermediate RED Verified 08/14/20 08:04 BULLET-LIKE RASH codeine Allergy Unknown n/v Verified 08/14/20 08:04 sulfamethoxazole Allergy Unknown Verified 02/15/21 16:12 [From Bactrim] trimethoprim [From Bactrim] Allergy Unknown Verified 02/15/21 16:12 acetaminophen AdvReac Unknown doesn't Verified 08/14/20 08:04 want, feel funny lisinopril AdvReac Unknown cough Verified 08/14/20 08:04 meperidine AdvReac Unknown n/v/diaphor Verified 08/14/20 08:04 etic Sulfa (Sulfonamide AdvReac Unknown N/V Verified 08/14/20 08:04 Antibiotics) Consultations 02/15/21 17:32 ED Decision to Admit Stat Ordered Studies Chest X-Ray 02/15/21 15:49 XR chest 1V portable CLINICAL HISTORY: Chest Pain COMPARISON STUDY: Chest radiograph February 05, 2018. FINDINGS: Lung volumes are normal. Lungs are clear. There is no pneumothorax or pleural effusion. Cardiac size is normal. Mediastinal contours are normal. There is no evidence for pulmonary edema. IMPRESSION: No acute cardiopulmonary findings. ACT 112: Negative or not required by law. Electronically signed by: Ronnie Cano M.D. 02/15/2021 4:29 PM ECHO Hospital Course (1) Chest pain: Presented with left sided chest pressure with radiation to shoulder over the past week. +JAIN. Hx HTN and reported to improve with ASA Trop negative x3 Normal sinus rhythm on telemetry monitoring EKG normal sinus rhythm, left axis deviation, evidence of LVH but did not indicate any signs of ischemia or ST elevation Dobutamine stress echo initially ordered however when patient went down to cardiopulmonary suite she developed a headache and had elevated pressures and study was not completed at that time and they performed a regular echocardiogram that showed normal left ventricular systolic function, was without wall motion abnormality, mildly dilated left atrium, no mitral valve prolapse present, mild mitral regurgitation, right ventricular systolic pressures normal This was reviewed by Dr. Vega and her primary manager sas and felt the patient stable for discharge would arrange dobutamine stress to be performed outpatient Of note, patient did have a headache which she has had in the past and was not unlike any other headache that she has had and was administered a dose of ibuprofen and stated that pain had completely resolved. 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 If she develops any worsening chest pain, shortness of breath or any other worsening symptoms she will return to the emergency department Her calcium was elevated on admission 10.5 and patient has had a history of hypercalcemia in the past. She is on vitamin D supplementation with a low normal vitamin D level during her hospitalization and elevated PTH and her vitamin D supplementation was increased and recommended that she have follow-up outpatient as this may be contributing to some of her symptoms. Her hydrochlorothiazide was discontinued however please note that she only utilizes this on rare occasion and has not for several weeks to months Her lipase was within normal limits TSH within normal limits Chest x-ray without acute process and lungs were clear on auscultation Blood pressures were elevated at times secondary to pain and headache that she stated had been occurring all evening long into the morning until it was relieved with ibuprofen. Her pressures were 159/84 prior to ibuprofen improved 126/79 afterwards. Could be some component of musculoskeletal discomfort versus spinal stenosis given her history of severe disc space narrowing at C5-C6 and moderate space narrowing at C6-C7 as observed on x-ray from May 2020. 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 It is interesting to note that the patient upon review of vital signs taken directly before patient was discharged did have discrepancy between right and left arms with 197/82 compared to 126/79 as this had not been that varied based upon review of previous blood pressures between left and right arms, i.e. previous evening systolic deferred by 16 diastolic 10 would recommend that she have these rechecked at her follow-up appointment with cardiology or PCP (2) Hypertension: Labile however did have an elevated pressure of 199/85 on admission She was continued on her losartan 50 mg a.m., 100 mg p.m. and these were continued at discharge Blood pressure was 126/79 however see above regarding differences in pressure to her left arm that had previously not been that varied from prior values Her hydrochlorothiazide has been discontinued however she had not been taking this very frequently in the past due. Discontinue due to hyper calciumia To follow-up with cardiology and can discuss increasing antihypertensives if remains elevated in office. Patient denied any further chest pain since admission and her headache resolved with ibuprofen as above (3) Hypothyroidism: Synthroid made maintained at 112 mcg and her thyroid stimulating hormone was within normal limits (4) Hypercalcemia: Elevated on admission to 10.5 and she has had previous elevations in the past She is on vitamin D 5000 IU daily this was increased to 7000 units as her parathyroid hormone intact was elevated at 82.8 and her vitamin D was low normal at 39.6 Ionized calcium within normal limits Recommended repeating labs in the next weeks to monitor calcium levels and vitamin D No history of stones Discontinued hydrochlorothiazide as above Of note patient on multiple herbal supplementations which she swears by that could also be interfering with her other medications (5) DVT prophylaxis: Ambulation, Chest pain resolved and patient was ready for discharge. Reviewed plan with sister at bedside and patient was discharged home. Total Time Total Time Spent Total Time Spent (In Minutes): 60 Discharge Plan Discharge Items Patient Disposition: Home - Self-Care Reason For Visit: CHEST PAIN Discharge Diagnosis: Chest Pain Condition on Discharge: Good Activity: Resume your previous activity Non-emergency contact: Primary Care Provider and Project Coach Call non-emergency contact if: you have any medication questions, your symptoms worsen and your pain is not controlled Follow-up/Referrals: Grace Presley CRNP [Primary Care Provider] - 02/28/21 9:50 am Jesse Mitchell DO [Physician] - (2 weeks. If you have any questions or need to change this appointment, please call [phone].) Diet: Heart Healthy Addtl Attending Provider Instructions: You have been hospitalized for chest pain. Troponins have been negative. Chest xray was negative for any infection or acute findings. ECHO of your heart did not show any wall motion abnormalities that would indicate damage and noted mild-moderate mitral regurgitation. Discussion was had with Dr. Mitchell and they will arrange for outpatient dobutamine stress in the next couple of weeks. I also discussed with Dr. Mitchell regarding elevated calcium which could be from hydrochlorothiazide and you should DISCONTINUE this medication at discharge. He will discuss alternative medications if needed. Elevated calcium levels can contribute to some of your symptoms. Your vitamin D level was checked given elevated calcium as well as parathyroid hormone, which could be because of low vitamin D and you should INCREASE YOUR Vitamin D supplementation to 7,000 instead of 10,000 as previously discussed. Follow up with PCP about repeating labs to see what your levels are and possible want to switch to Vitamin D 3 by it self in the future if needed. You should follow up with your primary care and Dr Mitchell in the next couple weeks to monitor your progress. Please return to the emergency department with any recurrence of chest pain, fever, or for any other symptoms that are concerning for you. It has been a pleasure being a part of the medical team providing for you while you have been in the hospital. Take care@ Pending Studies at Discharge: No Stand-Alone Forms: My [facility] Medications and DC Order Prescriptions: New cholecalciferol (vitamin D3) 25 mcg (1,000 unit) Capsule 7,000 unit PO DAILY 30 Days Qty: 210 RF: 0 Continued aspirin [Aspirin Childrens] 81 mg tablet,chewable 81 mg PO DAILY RF: 0 coenzyme Q10 [Co Q-10] 10 mg capsule 10 mg PO TID RF: 0 losartan 50 mg tablet 50 mg PO QAM RF: 0 ascorbate calcium (vitamin C) 500 mg tablet 500 mg PO DAILY RF: 0 losartan 100 mg tablet 100 mg PO HS RF: 0 levothyroxine 112 mcg tablet 112 mcg PO DAILY RF: 0 Discontinued hydrochlorothiazide 12.5 mg Tablet 12.5 mg PO DAILY PRN (Reason: Fluid Retention) RF: 0 cholecalciferol (vitamin D3) [Vitamin D3] 125 mcg (5,000 unit) Tablet 125 mcg PO DAILY RF: 0 Discharge Orders: Discharge Order (Routine); Ordered 02/16/21 Ordered By: Evelyn Werner Admission Data Admit Date/Time: 02/15/21 18:01 Attending Provider: Vishnu Garduno Admit Provider: Miquel Arriola Primary Care Provider: Grace Presley Other Interventions: Discharge Summary Assessment (RN) Last Done: 02/16/21 14:20 Supervising Physician Co-Signing Physician Notes Attending Attestation and Discharge Note - Pt seen/examined, chart reviewed, care plan d/w DENYS Werner. I agree with the smith components of her discharge documentation except - 25-OH vitamin D level is normal at 39. Increase in vitamin D supplementation is not necessary at this time. Brisa 75yo female with history of HTN and hypothyroidism who presented with chest pain and headache. BPs were markedly elevated at time of presentation and remained labile during her stay. Troponins x 3 were negative. Telemetry did not show dysrhythmia. 2D echo showed preserved EF and no regional wall motion abnormalities. Dobutamine stress test was ordered. However, due to severe headache and elevated BPs at the time of the test, the test was ultimately canceled. Headache resolved prior to discharge with motrin alone. Patient reported a remote history of cardiac catheterization at [facility]. I phone consulted Dr Jesse Mitchell and unfortunately no record of this heart cath could be found. [id number] she will f/u with Dr Mitchell for outpatient stress. She was asked to continue checking BPs at home twice a day and report these to her PCP and/or Dr Mitchell. At time of discharge it was suspected that her HTN/elevated BP was the cause of her headache and potentially her chest pain. Ischemic heart disease, however, does need to be ruled out with additional cardiac testing. Discharge exam - gen - NAD neck - no JVD heart - RRR, s1 s2, 1/6 systolic murmur LLSB lungs - CTA b/l chest - no reproducible chest wall tenderness abd - soft NT no HSM ext - pulses 2+ b/l With respect to the mild hypercalcemia - agree with stopping / not taking the HCTZ. Additional work-up for the hypercalcemia will be needed. Vishnu Garduno MD Coding Level of Care Code 50380 OBS Care - Discharge Diagnoses Chest pain R07.9 Chest pain type: unspecified Hypertension I10 Hypothyroidism E03.9 Hypercalcemia E83.52 DVT prophylaxis Z29.9
== END 2021-02-16 16:53 | disposition home or self-care (01) ==
LOC: ED 15:30 → 2N 15:30 → SUATTDRO 18:01 → 2N 20:12
DX: E83.52 Hypercalcemia; Z20.822 Contact with and (suspected) exposure to COVID-19; Z88.2 Allergy status to sulfonamides; Z79.899 Other long term (current) drug therapy; E03.9 Hypothyroidism, unspecified; Z79.890 Hormone replacement therapy; Z79.82 Long term (current) use of aspirin; Z88.5 Allergy status to narcotic agent; I10 Essential (primary) hypertension; R07.9 Chest pain, unspecified; M48.061 Spinal stenosis, lumbar region without neurogenic claudication; Z88.8 Allergy status to other drugs, medicaments and biological substances

== ENCOUNTER 2021-09-03 05:57 | Inpatient (IN) ==
--- NOTE | 2021-08-28 11:10 | PAT Medication Instructions ---
Medication Instructions Date of Service August 28, 2021 Home Medications aspirin 81 mg chewable tablet (Aspirin Childrens) 81 mg PO QAM coenzyme Q10 10 mg capsule (Co Q-10) 10 mg PO TID levothyroxine 112 mcg tablet 112 mcg PO QAM valsartan 160 mg tablet 160 mg PO BID albuterol sulfate 90 mcg/actuation aerosol inhaler 1 inh INHALATION QID PRN amlodipine 5 mg tablet 5 mg PO HS ascorbic acid (vitamin C) 1,000 mg tablet (Vitamin C) 1 g PO QDL famotidine 20 mg tablet 20 mg PO BID PRN ibuprofen 600 mg tablet 600 mg PO HS ASK your surgeon for instructions ibuprofen 600 mg tablet 600 mg PO HS ASK your prescriber and surgeon aspirin 81 mg chewable tablet (Aspirin Childrens) 81 mg PO QAM STOP taking 2 weeks before surgery (or as soon as possible if surgery is within 2 weeks) coenzyme Q10 10 mg capsule (Co Q-10) 10 mg PO TID DO NOT take the morning of surgery valsartan 160 mg tablet 160 mg PO BID ascorbic acid (vitamin C) 1,000 mg tablet (Vitamin C) 1 g PO QDL Take morning of surgery With a small sip of water, OTHERWISE NOTHING TO EAT OR DRINK AFTER MIDNIGHT: levothyroxine 112 mcg tablet 112 mcg PO QAM albuterol sulfate 90 mcg/actuation aerosol inhaler 1 inh INHALATION QID PRN (use if needed; please bring rescue inhaler with you to hospital day of surgery if possible) famotidine 20 mg tablet 20 mg PO BID PRN (if needed) Take evening before surgery valsartan 160 mg tablet 160 mg PO BID albuterol sulfate 90 mcg/actuation aerosol inhaler 1 inh INHALATION QID PRN (if needed) amlodipine 5 mg tablet 5 mg PO HS famotidine 20 mg tablet 20 mg PO BID PRN (if needed) Other Notes If you have any questions please call us at [phone] or [phone] or [phone] or [phone]
--- NOTE | 2021-08-30 09:07 | Anesthesiology Consultation ---
Date of Service August 30, 2021 Assessment & Plan (1) Encounter for pre-operative examination: - will attempt to obtain last cardiology note, Dr. Mitchell. - COVID screening: Per assessment on 08/30/2021: Travel screen negative, no known COVID-19 positive contacts or current COVID-19 related symptoms. Patient vaccinated. Surgeon arranging preop COVID testing, completed today at PAT appointment. Awaiting results. Chart Review Chart Review: Acceptable Risk for Surgery (pending cardiac records) and Patient seen in Pre Admission Testing Teaching & Discussion Pre-Anesthesia Teaching/Discussion Notes: Instructed NPO after midnight before surgery, except medications with 15 cc of water. Medication instructions provided according to the [facility] guidelines. History Surgery Operation Date: 09/03/21 10:10 Proposed Procedures p Right Carotid Endartectomy - Mateus Scott MD Height/Weight Height: 4 ft 11 in Weight: 79.5 kg Allergies Allergy/AdvReac Type Severity Reaction Status Date / Time hydralazine Allergy Severe Hypotension/ Verified 08/28/21 08:35 tremors/ headache codeine Allergy Intermediate n/v Verified 08/28/21 08:35 isopropyl alcohol Allergy Intermediate RED Verified 08/28/21 08:32 BULLET-LIKE RASH acetaminophen Allergy Unknown bad family Verified 08/28/21 08:37 hx of reaction sulfamethoxazole Allergy Unknown Verified 08/28/21 08:32 [From Bactrim] trimethoprim [From Bactrim] Allergy Unknown Verified 08/28/21 08:32 Sulfa (Sulfonamide AdvReac Severe N/V Verified 08/28/21 08:35 Antibiotics) lisinopril AdvReac Intermediate cough Verified 08/28/21 08:35 meperidine AdvReac Intermediate n/v/diaphor Verified 08/28/21 08:35 etic Medications Home Medications Medication Instructions Recorded Confirmed Last Taken aspirin 81 mg chewable tablet 81 mg PO QAM 05/19/19 08/28/21 02/15/21 (Aspirin Childrens) coenzyme Q10 10 mg capsule (Co 10 mg PO TID 05/19/19 08/28/21 02/15/21 Q-10) levothyroxine 112 mcg tablet 112 mcg PO QAM 02/15/21 08/28/21 02/15/21 valsartan 160 mg tablet 160 mg PO BID 08/22/21 08/28/21 Unknown albuterol sulfate 90 mcg/actuation 1 inh INHALATION QID PRN 08/28/21 08/28/21 Unknown aerosol inhaler amlodipine 5 mg tablet 5 mg PO HS 08/28/21 08/28/21 Unknown ascorbic acid (vitamin C) 1,000 mg 1 g PO QDL 08/28/21 08/28/21 Unknown tablet (Vitamin C) famotidine 20 mg tablet 20 mg PO BID PRN 08/28/21 08/28/21 Unknown ibuprofen 600 mg tablet 600 mg PO HS 08/28/21 08/28/21 Unknown Nasonex QPM 08/30/21 Unknown Additional Notes: Pt on numerous OTC supplements. List not available at time of visit or when contacted at home. Did recommend pt stop OTC supplements 08/30/2021. Pt will bring in complete list of supplements day of surgery or sooner if in area to scan into chart. Past Medical History Medical History (Updated 08/30/21 @ 12:32 by Radha Capps PA-C) Degenerative disc disease cervical and lumbar per pt Essential hypertension stable per pt Extrinsic asthma controlled and stable per pt, last rescue inhaler use yrs ago GERD (gastroesophageal reflux disease) controlled, stable per pt Hypothyroid IBS (irritable bowel syndrome) Lumbar canal stenosis Mitral valve prolapse follows with Dr. Mitchell Osteoarthritis Polycythemia "borderline" per pt, family history Sleep apnea per pt, Dr. Mitchell wants pt to be tested for this Patient denies h/o stroke, seizures, heart failure, DM, blood clots or blood transfusions. States that is unsure of heart attack as incidental EKG in the past demonstrated "silent KS" but unsure if was demonstrated on additional EKGs. Will obtain last cardiology note. 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 Grandfather (Maternal) Colon cancer Grandmother Stroke Other Alzheimer disease Past Surgical History Surgical History (Updated 08/30/21 @ 09:02 by Radha Capps PA-C) Basal cell carcinoma removed H/O section x1 History of back surgery cage and screws and lumbar fusion History of cardiac cath colton > 1997 > no stents History of carpal tunnel release bilat History of colonoscopy Hx of cervical polypectomy Hx of hand surgery bilat, multiple for trigger fingers Past Anesthesia History No Hx of Anesthesia Complications and No Family Hx of Anesthesia Complications History of PONV History of PONV (nausea, no vomiting) and Hx of Motion Sickness Social History Smoking Status: Never smoker Do You Dip or Chew Tobacco: No Hx Alcohol Use: Yes Alcohol type: hard liquor alcohol intake frequency: a few times a month Hx Substance Use: No substance use type: does not use Review of Systems Snoring, denies witnessed apneas or sleep studies. Intermittent nonproductive cough x several years without change or worsening. She notes trigger with dust. Patient denies chest pain, shortness of breath, dyspnea on exertion, reflux, fever, chills, wheezing, or palpitations. Physical Exam Vital Signs Vitals BP 148/77 P 58 TEMP 98.6 SP02 96% on RA RESP 16 Physical Limited cervical extension range of motion with discomfort (chronic per pt, follows with PCP) TMD 3.5 finger breaths Mallampati Score 3 Dentition: intact, front upper teeth "fractured" per pt, chipped upper left teeth; denies caps/crowns, implants or bridges Lungs: normal respiratory effort. Clear throughout to auscultation, no adventitious breath sounds Cardiac: regular rate and rhythm, no murmurs noted Carotid arteries: negative bruit bilat Extremities: no distal extremity edema Lab Results Anesthesia Preop Results Results Anesthesia Widget: WBC 6.68 K/uL (4.8-10.8) 08/30/21 Hgb 14.8 g/dL (12.0-16.0) 08/30/21 Hct 44.6 % (37-47) 08/30/21 Plt 283 K/uL (130-400) 08/30/21 Na 137 mmol/L (136-145) 08/30/21 K 4.7 mmol/L (3.5-5.1) 08/30/21 Cl 106 mmol/L (98-107) 08/30/21 CO2 28 mmol/L (21-32) 08/30/21 BUN 14 mg/dl (7-18) 08/30/21 Creat 0.86 mg/dl (0.6-1.2) 08/30/21 Glucose Level 93 mg/dl (70-99) 08/30/21 PT 9.8 Seconds (9.0-12.0) 08/30/21 PTT 25.5 Seconds (21.0-31.0) 08/30/21 INR 1.0 (0.9-1.1) 08/30/21 Blood Type O Positive 08/30/21 Antibody Screen NEGATIVE 08/30/21 Testing Electrocardiogram Date: 08/30/21 Sinus bradycardia, rate 53 bpm. Left axis deviation. When compared with ECG of 02/16/2021, no significant change was found. Chest X-Ray Date: 08/30/21 No acute cardiopulmonary disease. Echocardiogram Date: 02/16/21 EF 55-60%. Normal left ventricular size, function and wall motion. Left atrium mildly dilated. No mitral valve prolapse present. Mild mitral regurgitation. Right ventricular systolic pressure is normal. Other Testing Neck CTA 08/20/2021: IMPRESSION: 1. Extensive atherosclerotic plaque of the right carotid bulb results in high- grade stenosis of the proximal cervical segment right ICA with luminal narrowing measuring approximately 90%. 2. Moderate atherosclerotic plaque of the left carotid bulb results in less than 50% luminal narrowing.
[2021-09-03] MEDS ORDERED: CEFAZOLIN 1,000 MG/7.5 ML SYR IV SCH (06:00)
[2021-09-03] MEDS ORDERED: SODIUM CHLORIDE 0.9% 1000ML 1,000 ML IV SCH (06:00)
[2021-09-03] MEDS ORDERED: fentaNYL citrate 100 MCG/2 ML VIAL ONE (06:44)
[2021-09-03] MEDS ORDERED: ONDANSETRON INJ 2 MG/ML 2 ML VIAL ONE (06:44)
[2021-09-03] MEDS ORDERED: GLYCOPYRROLATE 0.2 MG/ML VIAL ONE (06:44)
[2021-09-03] MEDS ORDERED: PROPOFOL IV EMULSION 10 MG/ML 20 ML VIAL IV ONE (06:44)
[2021-09-03] MEDS ORDERED: NEOSTIGMINE METHYLSULFATE 1 MG/ML 10ML VIAL ONE (06:44)
[2021-09-03] MEDS ORDERED: LIDOCAINE 2% 2 ML VIAL/AMP(20MG/ML) INFIL ONE (06:44)
[2021-09-03] MEDS ORDERED: DEXAMETHASONE SOD INJ 4 MG/ML VIAL ONE (06:44)
[2021-09-03 06:47] LABS: BUN Creatinine Ratio 17.4 (10-20); Calcium 10.7 mg/dl (8.5-10.1); Creatinine Clr Calc Pharmacy 48.9 ml/min; Potassium 4.1 mmol/L (3.5-5.1)
[2021-09-03] MEDS ORDERED: LIDOCAINE 1% LOCAL 20 ML VIAL ONE (07:14)
[2021-09-03] MEDS ORDERED: GELATIN SPONGE SZ 100 ONE (07:14)
[2021-09-03] MEDS ORDERED: HEPARIN (PORCINE) 1000 UNIT/ML 10 ML (CATH LAB USE ONLY) ONE (07:14)
[2021-09-03] MEDS ORDERED: THROMBIN FOR SOLN 20000 UNIT KIT ONE (07:14)
--- NOTE | 2021-09-03 07:22 | History & Physical Bridge Note ---
Date of Service September 03, 2021 History & Physical Bridge Note I have examined the patient, reviewed the History & Physical and in the interval since the performance of the History & Physical I have noted the following changes of clinical significance: no changes noted
--- NOTE | 2021-09-03 07:22 | History & Physical Report ---
Date of Service September 03, 2021 History of Present Illness Primary Care Provider: RYAN Diaz Name: MARGY PORTER Patient Number: [id number] : 1945 Date of Service: 08/20/2021 Chief Complaint: _New patient consultation for right ICA stenosis HPI: _ is an elderly female vascular surgery clinic today as a new patient in consultation regarding a recent finding of severe right internal carotid artery stenosis on ultrasound. Patient states that she saw her radio equipment repairer for a routine care visit and he noted a sound in her neck, and sent her for testing the same day. Patient states she was advised that her ultrasound indicated severe plaque and she was advised to see us today. Patient states that she did have an episode months ago where she had some slurred speech and confusion and was admitted to the hospital for a possible stroke, but they determined that it was some kind of a migraine. She has not had recurrence of the symptoms. She denies amaurosis, extremity weakness numbness or tingling, difficulty speaking or swallowing, facial droop, sudden onset confusion, other concerns. Additionally she denies fever, chills, chest pain, shortness of breath, dull pain, nausea, vomiting, rest pain, claudication, nonhealing wounds or ulcers, other concerns. Review of systems: 14 systems were reviewed and are negative aside from what is related in her HPI. Imaging: Patient underwent a carotid ultrasound which indicated 80 to 99% stenosis of her right ICA, and velocities of 400/200. Current Home Meds: (Last Updated 08/20 13:38) amLODIPine (amLODIPine 5 mg oral tablet) 5 mg PO Daily aspirin (aspirin 81 mg oral tablet) two tabs daily cholecalciferol (Vitamin D3) 7,000 IU doxycycline (doxycycline hyclate 100 mg oral tablet) 100 mg PO bid levothyroxine (levothyroxine 112 mcg (0.112 mg) oral tablet) 1.5 tabs on Friday and 1 tab on all other days mometasone nasal (Nasonex 50 mcg/inh nasal spray) 2 spray each nostril Daily PRN: as needed for allergy symptoms triamcinolone topical (triamcinolone 0.5% topical cream) 1 appl topical bid apply a thin film to area left wrist valsartan (valsartan 160 mg oral tablet) 160 mg PO bid Allergies and Sensitivities: Demerol(unknown) Demerol(Unknown) isopropyl alcohol topical(Skin irritation) isopropyl alcohol topical(see comment) hydrALAZINE(migraine) Tylenol(brain goes crazy) Tylenol(can't remember stuf) sulfa drugs CHIP Inhibitors codeine Bactrim Past Medical History: Problems: Carotid stenosis JAIN (dyspnea on exertion) History of prediabetes H/O echocardiogram Hypothyroidism Allergic rhinitis due to allergen Lumbosacral radiculopathy at L5 Generalized osteoarthritis of multiple sites Essential hypertension Family history: Alzheimer's disease in her mother, cancer in her father, hypertension in her brother Surgical history: Positive for section, colonoscopy, cardiac catheterization, trigger finger release Social history: Patient is a non-smoker, and does not use illicit drugs or drink alcohol. [place]. She is very active. OBJECTIVE Vitals: Last Updated 08/20/21 13:42 Date Temp BP Location Pulse RR SpO2 Pain 08/20/21 146/60 Right Arm 08/20/21 154/74 Left Arm 68 98 08/20/21 0 Vital Signs are the last 3 documented. No Orthostatic Data Available Height and Weight: Last Updated 07/17/21 14:10 Date BMI Wt(kg) Wt(lb) Method Ht(cm) (ft-in) Method 07/17/21 78.8 173 Standing Scale 06/12/21 80 176 Standing Scale 05/14/21 78.4 172 Standing Scale Heights and Weights are the last 3 documented. Physical Exam _ Constitutional: In general patient is a healthy-appearing well-nourished elderly female no distress. She is alert and oriented without any focal neurological deficits. Her head is normocephalic and atraumatic. Her trachea is midline, her right carotid does demonstrate a bruit. Her heart is regular, her lungs are clear throughout. Her abdomen is soft nontender with normoactive bowel sounds in all 4 quadrants. There is no pulsatile mass appreciable. Her brachial radial and ulnar pulses are +3. Her lower extremity distal pulses are +2. She has brisk capillary refill and no sign of distal ischemia. ASSESSMENT: _ PLAN: _ 1 ) _severe right internal carotid artery stenosis Overall this patient does not appear to have any recent symptoms her right ICA stenosis. It is unclear whether she underwent previous imaging during her possible TIA event months ago. At this time her carotid ultrasound indicates severe stenosis and likely 99%. This does put her at considerable risk of a CVA, and patient was also seen by Dr. Scott in the office today who recommends that patient undergo a right carotid endarterectomy procedure. We will obtain a CTA prior to her procedure. The procedure, risks, benefits, and alternatives were discussed with the patient by Dr. Scott in the office today. Patient expresses understanding and agreement to proceed. This will occur soon. We will keep you informed as to the outcome of surgery. Patient is advised to call here with any questions or concerns. Thank you for letting us participate in the care of this patient. Signature Line Electronic Signature on File Electronically Reviewed/Signed by: Avani Mosley PA-C Author Signature Dt/Tm:08/20/2021 04:45 PM [facility] [address], [facility] [address] [place] [address] Electronically Reviewed/Signed by: MD Amalia Gallagher Signature Dt/Tm: 08/21/2021 10:59 AM Information Operator [facility] [address] [facility] [address] [place] [address] LM Result Type: HVI Outpt Note Date of Service: August 20, 2021 16:35 EST Authorization Status: Final Author or Import Date: JACKIE Mosley Lynn on August 20, 2021 16:45 EST Verified By: MD Tyler, Mateus Soriano on August 21, 2021 10:59 EST Encounter info: [id number], [place] [address], Clinic, 08/20/2021 - 08/20/2021 Allergies Allergy/AdvReac Type Severity Reaction Status Date / Time hydralazine Allergy Severe Hypotension/ Verified 08/28/21 08:35 tremors/ headache codeine Allergy Intermediate n/v Verified 08/28/21 08:35 isopropyl alcohol Allergy Intermediate RED Verified 08/28/21 08:32 BULLET-LIKE RASH acetaminophen Allergy Unknown bad family Verified 08/28/21 08:37 hx of reaction sulfamethoxazole Allergy Unknown Verified 08/28/21 08:32 [From Bactrim] trimethoprim [From Bactrim] Allergy Unknown Verified 08/28/21 08:32 Sulfa (Sulfonamide AdvReac Severe N/V Verified 08/28/21 08:35 Antibiotics) lisinopril AdvReac Intermediate cough Verified 08/28/21 08:35 meperidine AdvReac Intermediate n/v/diaphor Verified 09/03/21 06:15 etic Home Medications Medication Instructions Recorded Confirmed Type aspirin 81 mg chewable tablet 81 mg PO QAM 05/19/19 09/03/21 History (Aspirin Childrens) coenzyme Q10 10 mg capsule (Co 10 mg PO TID 05/19/19 09/03/21 History Q-10) levothyroxine 112 mcg tablet 112 mcg PO QAM 02/15/21 09/03/21 History valsartan 160 mg tablet 160 mg PO BID 08/22/21 09/03/21 History albuterol sulfate 90 mcg/actuation 1 inh INHALATION QID PRN 08/28/21 09/03/21 History aerosol inhaler amlodipine 5 mg tablet 5 mg PO HS 08/28/21 09/03/21 History ascorbic acid (vitamin C) 1,000 mg 1 g PO QDL 08/28/21 09/03/21 History tablet (Vitamin C) famotidine 20 mg tablet 20 mg PO BID PRN 08/28/21 09/03/21 History ibuprofen 600 mg tablet 600 mg PO HS 08/28/21 09/03/21 History Nasonex QPM 08/30/21 History Past Med/Surg History Medical History Degenerative disc disease cervical and lumbar per pt Essential hypertension stable per pt Extrinsic asthma controlled and stable per pt, last rescue inhaler use yrs ago GERD (gastroesophageal reflux disease) controlled, stable per pt Hypothyroid IBS (irritable bowel syndrome) Lumbar canal stenosis Mitral valve prolapse follows with Dr. Mitchell Osteoarthritis Polycythemia "borderline" per pt, family history Sleep apnea per pt, Dr. Mitchell wants pt to be tested for this Surgical History Basal cell carcinoma removed H/O section x1 History of back surgery cage and screws and lumbar fusion History of cardiac cath colton > 1997 > no stents History of carpal tunnel release bilat History of colonoscopy Hx of cervical polypectomy Hx of hand surgery bilat, multiple for trigger fingers Family History Mother Diabetes Father Diabetes Grandfather (Paternal) Colon cancer Grandfather (Paternal) No problems noted. Grandfather (Maternal) Colon cancer Grandmother Stroke Other Alzheimer disease Social History Smoking Status: Never smoker Second Hand Exposure: No; Do You Dip or Chew Tobacco: No; Tobacco Cessation Education Requested by Patient: No Hx Alcohol Use: Yes Alcohol type: wine Hx Substance Use: No Preferred Language: Comoran Communication Ability: Effective Hydraulics Engineer Required: No Beliefs That Will Affect Care: None Current Living Situation: Family Current Living Situation Comment: Lives with sister Other Information That Helps Us Care for You: No Feels Safe at Home: Yes Safety Concerns: Feels Safe At This Time Assistive Devices: None Results & Data ([facility]) Vital Signs (Past 12 Hours) Vital Signs Temp Pulse Resp BP BP Pulse Ox 09/03/21 06:23 36.6 C 57 L 20 158/82 H 158/67 H 100
[2021-09-03] MEDS ORDERED: EPINEPHrine INJ 1 MG/ML AMP ONE (07:26)
[2021-09-03] MEDS ORDERED: BUPIVACAINE 0.5 % 5 MG/1 ML MPF 30ML VIAL ONE (07:26)
[2021-09-03] MEDS ORDERED: MIDAZOLAM HCL 1 MG/ML 2ML VIAL ONE (07:34)
[2021-09-03] MEDS ORDERED: ATROPINE SULFATE 0.1 MG/ML 10ML SYR IV PRN (08:47)
[2021-09-03] MEDS ORDERED: ePHEDrine sulfate 50 MG/ML AMP IV PRN (08:47)
[2021-09-03] MEDS ORDERED: ONDANSETRON INJ 2 MG/ML 2 ML VIAL IV PRN (08:47)
[2021-09-03] MEDS ORDERED: fentaNYL citrate 100 MCG/2 ML VIAL IV PRN ×2 (08:47→10:15)
[2021-09-03] MEDS ORDERED: HYDROmorphone INJ 1 MG/ML SYRINGE IV PRN (08:47)
[2021-09-03] MEDS ORDERED: PHENYLEPHRINE HCL 10 MG/ML VIAL ONE (08:52)
[2021-09-03] MEDS ORDERED: ePHEDrine sulfate 50 MG/ML SYR ONE (08:52)
[2021-09-03] MEDS ORDERED: LARYING-O-JET KIT (LTA) ONE (08:54)
[2021-09-03] MEDS ORDERED: HEPARIN SOD (PORCINE) 1000 UNIT/ML ONE (09:17)
[2021-09-03] MEDS ORDERED: ROCURONIUM BROMIDE 10 MG/ML 5 ML VIAL IV ONE (09:23)
[2021-09-03] MEDS ORDERED: PROTAMINE SULFATE 10 MG/ML 5 ML VIAL ONE (09:26)
[2021-09-03] MEDS ORDERED: ESMOLOL HCL INJ 10 MG/ML 10ML VIAL IV ONE (10:08)
--- NOTE | 2021-09-03 10:10 | Operative Report ---
Post Operative Report Pre & Post Diagnosis Operation Date: 09/03/21 07:30 Pre-Op Diagnosis: Severe right internal carotid artery stenosis Post-Op Diagnosis: Severe right internal carotid artery stenosis I identified the patient and participated in the time-out.: Yes Procedure Operation Date: 09/03/21 07:30 Actual Procedures p Right Carotid Endartectomy with Patch(Right) - Mateus Scott MD Surgeon Mateus Scott MD [place] Consultant Jasmine,PAC Estimated Blood Loss 200 Findings Consistent with Post-Op Diagnosis Specimens plaque right carotid Anesthesia Type General Complications none Disposition Accompanied Patient To Recovery: No Disposition: Recovery Room Indications This is a 76-year-old female who was found to have a severe preocclusive right internal carotid artery lesion. She did have 1 bout of amaurosis fugax within the month prior to being seen. Right carotid enterectomy was recommended. I have discussed the risks options and benefits of the procedure with the patient. The patient understands the risks options and benefits and agrees to the procedure. Description of Procedure The patient was taken to the operating room and placed in supine position. After general anesthesia was accomplished the right side of the neck was prepped and draped in a sterile manner. The patient was identified and a timeout performed. A longitudinal neck incision was then made coursing along the medial border of the sternocleidomastoid muscle. The incision was taken down through the platysmal layer. The facial vein was identified, ligated, and divided. The common carotid artery was then seen. It was dissected free down to the omohyoid muscle. The omohyoid had to be partially divided to the proximal nature of the lesion. The dissection was carried upward until the external carotid artery. The external carotid was slung with a red rubber vessel loop. Next the dissection was carried up along the internal carotid artery. This was carried upward to beyond the area of narrowing. The hypoglossal nerve was not seen seen and believed to be much more higher in location and the neck. The patient was heparinized. After adequate heparinization was accomplished, the internal, external, and common carotid arteries were clamped. A longitudinal arteriotomy was started on the common carotid artery and extended upward along the internal carotid artery to a point beyond the area of narrowing. There was calcified plaque of the internal carotid artery origin causing approximately greater than 90% narrowing. A Sundt shunt was then placed in the internal, followed by the common carotid artery and held in place with Jhonny clamps. There was good back bleeding seen from the internal carotid artery. The endarterectomy was then started in the appropriate plane on the common carotid artery. The plaque had an area which appeared to be old intraplaque hemorrhage. It was carried upward and the external carotid was everted and endarterectomized. The endarterectomy was then carried up along the internal carotid artery till a nice feathering breakoff point was accomplished beyond the end of the plaque. The endarterectomy was then carried down further on the common carotid artery. At end of the arteriotomy, the plaque was then transected. Under loop magnification, all loose debris and flaps werer removed. There is no distal flap seen at the end of the endarterectomy site. The arteriotomy then closed using a bovine patch and a running 6-0 Prolene suture. This was done in the usual vascular fashion. Prior to completing the closure, the Sundt shunt was removed and the internal and common carotid arteries were reclamped. Backbleeding and forward bleeding was allowed to occur. The flow surface was irrigated with heparinized saline. The final few sutures were then placed and securely tied. Clamps were then removed off the external and common carotid arteries. The clamp was then removed the internal carotid artery. Good distal flow was seen. Adequate hemostasis was seen of the patch. The wound was inspected and adequate hemostasis was obtained. The wound was irrigated with antibiotic solution. It was then closed with a running 3-0 Vicryl suture for the platysmal layer and a 4-0 subcuticular Vicryl suture for the skin edges. Dermabond was used for dressing. The patient left the operation room in sa tisfactory condition and tolerated the procedure well. All needle and sponge counts were correct at the end of the procedure. Avani Mosley Pac assisted due to lack of resident availability and was necessary for prepping, draping, retraction, wound closure defects, subQ and skin closure and was necessary for the case. I attest to the content of the Intraoperative Record and any orders documented therein. Any exceptions are noted below.
--- NOTE | 2021-09-03 10:20 | Procedure Note ---
Procedure Note Date of Service September 03, 2021 Note Radial arterial line placed in OR 8 after induction in preparation for right CEA with Dr. Scott. Left wrist prepped with chlorhexidine and draped with sterile towels. 20 G angiocath placed under sterile technique utilizing sterile gloves, surgical hats and masks. Catheter threaded using seldinger technique with return of pulsatile, bright red blood. Site covered with occlusive dressing and taped in place. Waveform consistent with correct arterial placement. After placement, fingers of procedural hand had normal perfusion. Patient tolerated procedure well without complications. Neelam Louis MD, PhD Anesthesiologist Coding
[2021-09-03] MEDS ORDERED: LABETALOL HCL IV 5 MG/ML 20ML IV PRN (10:26)
[2021-09-03] MEDS ORDERED: LABETALOL HCL IV 5 MG/ML 20ML IV ONE ×2 (10:29→21:42)
--- NOTE | 2021-09-03 10:47 | Anesthesiology Progress Note ---
Date of Service September 03, 2021 Anesthesia Post Procedure Vital Signs Vital Signs: Temp Pulse Resp BP BP Pulse Ox 09/03/21 10:40 68 18 157/85 H 95 09/03/21 10:30 93 H 18 170/86 H 100 09/03/21 10:22 36.0 C L 75 18 154/84 H 99 09/03/21 06:23 36.6 C 57 L 20 158/82 H 158/67 H 100 Transfer of Care Handoff Completed per policy Notes Mental Status: alert / awake / arousable Patient Amnestic to Procedure: Yes Nausea / Vomiting: adequately controlled Pain: adequately controlled Airway Patency, RR, SpO2: stable & adequate BP & HR: stable & adequate Hydration State: stable & adequate Anesthetic Complications: no major complications apparent Notes: equal strength x4 extremities
[2021-09-03] MEDS ORDERED: oxyCODONE HCL IR 5 MG TAB (IMMEDIATE RELEASE) PO PRN (11:13)
[2021-09-03] MEDS ORDERED: FAMOTIDINE 20 MG TAB PO PRN (11:13)
[2021-09-03] MEDS ORDERED: ALBUTEROL HFA 8 GM INHALER INH PRN (11:13)
[2021-09-03] MEDS ORDERED: MoRPHine SULFATE 4 MG/ML 1 ML CARP\\VIAL IV PRN (11:13)
[2021-09-03] MEDS: D5W AND 1/2NSS 1,000 ML IV SCH ×2 (11:55→21:47)
[2021-09-03] MEDS: ASCORBIC ACID 500 MG TAB PO SCH (12:05)
--- NOTE | 2021-09-03 13:23 | Critical Care Consultation ---
Date of Consultation September 03, 2021 Assessment & Plan (1) Status post carotid endarterectomy: Mallory Collado is a 76-year-old female with PMH of asthma, hypertension, hypothyroidism who was admitted to [facility] for right carotid endarterectomy due to >90% occlusion of right ICA. Neuro: No current neurologic issues Cardiac: BP well-maintained. No pressors required at this time. Continue home amlodipine and valsartan. Respiratory: On 2L nasal cannula; does not require supplementation at baseline. Continue supplemental oxygen as needed. Wean as able. GI: Heart healthy diet as tolerated. Famotidine 20mg PO BID. Renla/Lytes: No renal/electrolyte abnormalities requiring treatment at this time. Endo: ICU hyperglycemia protocol. Continue home levothyroxine for hypothyroidism. Heme: Hemodynamically stable currently. Check AM CBC. ID: Received intraop abx. No current ID needs. DVT prophylaxis: [_] IV/Lines/Miller: Left radial arterial line (placed 09/03/21), no Miller cath Dispo: ICU status CODE: FULL CODE (2) Right internal carotid occlusion: (3) Hypothyroidism: (4) Asthma: (5) Hypertension: History of Present Illness Attending Physician: Mateus Scott MD History of Present Illness Mallory Collado is a 76-year-old female with PMH of asthma, hypertension, hypothyroidism who was admitted to [facility] for right carotid endarterectomy due to >90% occlusion of right ICA. This was found after a recent cardiology appointment where her a and p mechanic heard a murmur in her neck. Neck CTA on 08/20/21 showed the high-grade stenosis (~90%) of right ICA, as well as moderate atherosclerotic plaque of left carotid bulb resulting in less than 50% narrowing. She underwent right ICA endarterectomy this morning and tolerated the procedure without complications. Patient had negative COVID-19 testing, negative MRSA nares, and largely non- concerning BMP on admission. Allergies Allergy/AdvReac Type Severity Reaction Status Date / Time hydralazine Allergy Severe Hypotension/ Verified 08/28/21 08:35 tremors/ headache codeine Allergy Intermediate n/v Verified 08/28/21 08:35 isopropyl alcohol Allergy Intermediate RED Verified 08/28/21 08:32 BULLET-LIKE RASH acetaminophen Allergy Unknown bad family Verified 08/28/21 08:37 hx of reaction sulfamethoxazole Allergy Unknown Verified 08/28/21 08:32 [From Bactrim] trimethoprim [From Bactrim] Allergy Unknown Verified 08/28/21 08:32 Sulfa (Sulfonamide AdvReac Severe N/V Verified 08/28/21 08:35 Antibiotics) lisinopril AdvReac Intermediate cough Verified 08/28/21 08:35 meperidine AdvReac Intermediate n/v/diaphor Verified 09/03/21 06:15 etic Home Medications Medication Instructions Recorded Confirmed Type aspirin 81 mg chewable tablet 81 mg PO QAM 05/19/19 09/03/21 History (Aspirin Childrens) coenzyme Q10 10 mg capsule (Co 10 mg PO TID 05/19/19 09/03/21 History Q-10) levothyroxine 112 mcg tablet 112 mcg PO QAM 02/15/21 09/03/21 History valsartan 160 mg tablet 160 mg PO BID 08/22/21 09/03/21 History albuterol sulfate 90 mcg/actuation 1 inh INHALATION QID PRN 08/28/21 09/03/21 History aerosol inhaler amlodipine 5 mg tablet 5 mg PO HS 08/28/21 09/03/21 History ascorbic acid (vitamin C) 1,000 mg 1 g PO QDL 08/28/21 09/03/21 History tablet (Vitamin C) famotidine 20 mg tablet 20 mg PO BID PRN 08/28/21 09/03/21 History ibuprofen 600 mg tablet 600 mg PO HS 08/28/21 09/03/21 History Nasonex QPM 08/30/21 History Patient History Medical History (Updated 09/03/21 @ 13:31 by Castillo Mello MD) Degenerative disc disease cervical and lumbar per pt Essential hypertension stable per pt Extrinsic asthma controlled and stable per pt, last rescue inhaler use yrs ago GERD (gastroesophageal reflux disease) controlled, stable per pt Hypothyroid IBS (irritable bowel syndrome) Lumbar canal stenosis Mitral valve prolapse follows with Dr. Mitchell Osteoarthritis Polycythemia "borderline" per pt, family history Sleep apnea per pt, Dr. Mitchell wants pt to be tested for this Surgical History (Updated 09/03/21 @ 13:31 by Castillo Mello MD) Basal cell carcinoma removed H/O section x1 History of back surgery cage and screws and lumbar fusion History of cardiac cath colton > 1997 > no stents History of carpal tunnel release bilat History of colonoscopy Hx of cervical polypectomy Hx of hand surgery bilat, multiple for trigger fingers Family History Mother Diabetes Father Diabetes Grandfather (Paternal) Colon cancer Grandfather (Paternal) No problems noted. Grandfather (Maternal) Colon cancer Grandmother Stroke Other Alzheimer disease Social History Smoking Status: Never smoker Second Hand Exposure: No; Do You Dip or Chew Tobacco: No; Tobacco Cessation Education Requested by Patient: No Hx Alcohol Use: Yes Alcohol type: wine Hx Substance Use: No Preferred Language: Kuwaiti Communication Ability: Effective Infection Control Preventionist Required: No Beliefs That Will Affect Care: None Current Living Situation: Family Current Living Situation Comment: Lives with sister Other Information That Helps Us Care for You: No Feels Safe at Home: Yes Safety Concerns: Feels Safe At This Time Assistive Devices: None Review of Systems Review of Systems: Denies CP, palp, SOB, cough, wheezing, n/v, abd pain, weakness, numbness, confusion. Physical Exam Physical Exam: GENERAL: A&Ox3. NAD. HEENT: PERRL, EOMI. Moist mucous membranes. NECK: No JVD. No lymphadenopathy. Right side covered in c/d/i dressing. CHEST/LUNGS: CTAB A/P. No crackles, wheezes, rales, rhonchi. HEART: RRR. No m/g/r. Normal S1/S2. ABDOMEN: NT/ND, soft. BS+ x4 EXTREMITIES: No cyanosis, no clubbing, no edema SKIN: Warm and dry. No rashes or lesions. PSYCHIATRIC: Euthymic affect, no SI, no pressured speech, no hallucinations NEUROLOGIC: No FND. Moves all extremities equally. Results & Data Results & Data ([facility]) Vital Signs (Past 12 Hours) Vital Signs Temp Pulse Pulse Resp BP BP BP 09/03/21 12:20 53 L 13 09/03/21 12:10 54 L 13 09/03/21 12:00 62 12 138/63 09/03/21 11:50 70 18 09/03/21 11:40 58 L 13 09/03/21 11:30 70 14 09/03/21 11:20 65 15 09/03/21 11:10 70 12 09/03/21 11:02 14 09/03/21 10:50 36.2 C L 68 18 138/71 09/03/21 10:40 68 18 157/85 H 09/03/21 10:30 93 H 18 170/86 H 09/03/21 10:22 36.0 C L 75 18 154/84 H 09/03/21 06:23 36.6 C 57 L 20 158/82 H 158/67 H Pulse Ox 09/03/21 12:20 98 09/03/21 12:10 99 09/03/21 12:00 99 09/03/21 11:50 98 09/03/21 11:40 100 09/03/21 11:30 99 09/03/21 11:20 99 09/03/21 11:10 98 09/03/21 11:02 99 09/03/21 10:50 95 09/03/21 10:40 95 09/03/21 10:30 100 09/03/21 10:22 99 09/03/21 06:23 100
--- NOTE | 2021-09-03 14:38 | Critical Care Consultation ---
Date of Consultation September 03, 2021 Assessment & Plan (1) Status post carotid endarterectomy: (2) Right internal carotid occlusion: (3) Hypertension: (4) Asthma: (5) WYATT (acute kidney injury): (6) Hypothyroidism: (7) Hypercalcemia: Attending: Dr. Humphrey Impression: 76-year-old female with incidental finding of near complete opacification of the right carotid artery on examination by her board of education secretary. Patient seen by vascular surgery last Friday and scheduled for right carotid endarterectomy today. No significant complications with surgery. EBL 200 mL. Patient being observed in the intensive care unit overnight. Reason Critically Ill: Observation status post right carotid endarterectomy Neuro - [facility] ICU: Alert and oriented x3 Continue aspirin 81 mg daily No neurological deficits identified on physical examination Cardiac - Hemodynamically stable. Patient with history of hypertension. Outpatient medications include amlodipine and valsartan Patient allergic to hydralazine Monitor on telemetry during the recovery. Respiratory - Patient with history of asthma Only home medication is albuterol HFA to be used as needed No bronchospasm on examination No pulmonary function tests Titrate supplemental oxygen off as tolerated GI - History of GERD Home medications include famotidine 20 mg p.o. twice daily as needed No acute complaints Head of bed greater than 30 degrees. Aspiration precautions per nursing protocol postsurgically RENAL/LYTES - BUN 15, creatinine 0.89 Continue NSS at 80 mL/h Check repeat labs in the morning Advance AHA diet as tolerated per nursing protocol - No Miller catheter required Follow ins and outs while in the intensive care unit ENDO - No history of diabetes mellitus Continue levothyroxine for acquired hypothyroidism HEME - 200 mL EBL Hemodynamically stable Hemoglobin 14.8/hematocrit 44.6% Check CBC in the morning ID - No evidence of infection Received cefazolin preoperatively Afebrile WBC 6.68 MRSA screening negative Follow clinically LINES/IV ACCESS - PIV No indication for large bore access at this time DVT PROPHYLAXIS - Chemical prophylaxis per Dr. Scott Ambulate as tolerated No critical care time. Most likely will downgrade or discharge home tomorrow morning Thank you for including us in the care of this patient. Please refer to Dr. Humphrey's addendum for further recommendations. Supervising Physician Co-Signing Physician Notes Seen and examined. EMR reviewed. Agree with assessment plan as noted by critical care RUEL History of Present Illness Attending Physician: Mateus Scott MD History of Present Illness Attending: Dr. Humphrey This is a 76-year-old female with a past medical history of right in ternal carotid occlusion, questionable TIA versus migraine, hypertension, asthma, history of back surgery, WYATT, hypothyroidism, hypercalcemia, and obesity. Patient presented to her board of education secretary, Dr. Mitchell, and was found to have right carotid bruit. He sent the patient for a carotid ultrasound as she was found to have 74 to 99% occlusion. She was referred to Dr. Scott's office from vascular surgery and saw him last Friday. Patient was scheduled for surgery for right carotid artery endarterectomy which she had performed this morning. Patient had a right carotid endarterectomy with patch on the right side without complication. Estimated blood loss was 200 mL. Patient was transferred to the intensive care unit postoperatively for overnight observation. Patient was seen postoperatively in ICU room 109. She is alert and oriented. She states the pain is generally controlled at the surgical site. She does complain of a frontal headache. She reports that she gets these headaches f requently over the last several years and typically takes ibuprofen. She is unable to tolerate Tylenol. Patient has no other neurological deficits. She reports that in the past she had what was diagnosed as a migraine which is now considered possibly be a TIA. At that time she had headache, some slurred speech, and some disorientation. She has no history of hemiparesis and no formal diagnosis of CVA. Home medications include aspirin 81 mg p.o. daily. No other antiplatelet agents or anticoagulants. 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 No prior tobacco abuse history, pulmonary disease, malignancy. Allergies Allergy/AdvReac Type Severity Reaction Status Date / Time hydralazine Allergy Severe Hypotension/ Verified 08/28/21 08:35 tremors/ headache codeine Allergy Intermediate n/v Verified 08/28/21 08:35 isopropyl alcohol Allergy Intermediate RED Verified 08/28/21 08:32 BULLET-LIKE RASH acetaminophen Allergy Unknown bad family Verified 08/28/21 08:37 hx of reaction sulfamethoxazole Allergy Unknown Verified 08/28/21 08:32 [From Bactrim] trimethoprim [From Bactrim] Allergy Unknown Verified 08/28/21 08:32 Sulfa (Sulfonamide AdvReac Severe N/V Verified 08/28/21 08:35 Antibiotics) lisinopril AdvReac Intermediate cough Verified 08/28/21 08:35 meperidine AdvReac Intermediate n/v/diaphor Verified 09/03/21 06:15 etic Home Medications Medication Instructions Recorded Confirmed Type aspirin 81 mg chewable tablet 81 mg PO QAM 05/19/19 09/03/21 History (Aspirin Childrens) coenzyme Q10 10 mg capsule (Co 10 mg PO TID 05/19/19 09/03/21 History Q-10) levothyroxine 112 mcg tablet 112 mcg PO QAM 02/15/21 09/03/21 History valsartan 160 mg tablet 160 mg PO BID 08/22/21 09/03/21 History albuterol sulfate 90 mcg/actuation 1 inh INHALATION QID PRN 08/28/21 09/03/21 History aerosol inhaler amlodipine 5 mg tablet 5 mg PO HS 08/28/21 09/03/21 History ascorbic acid (vitamin C) 1,000 mg 1 g PO QDL 08/28/21 09/03/21 History tablet (Vitamin C) famotidine 20 mg tablet 20 mg PO BID PRN 08/28/21 09/03/21 History ibuprofen 600 mg tablet 600 mg PO HS 08/28/21 09/03/21 History Nasonex QPM 08/30/21 History Patient History Medical History Degenerative disc disease cervical and lumbar per pt Essential hypertension stable per pt Extrinsic asthma controlled and stable per pt, last rescue inhaler use yrs ago GERD (gastroesophageal reflux disease) controlled, stable per pt Hypothyroid IBS (irritable bowel syndrome) Lumbar canal stenosis Mitral valve prolapse follows with Dr. Mitchell Osteoarthritis Polycythemia "borderline" per pt, family history Sleep apnea per pt, Dr. Mitchell wants pt to be tested for this Surgical History Basal cell carcinoma removed H/O section x1 History of back surgery cage and screws and lumbar fusion History of cardiac cath colton > 1997 > no stents History of carpal tunnel release bilat History of colonoscopy Hx of cervical polypectomy Hx of hand surgery bilat, multiple for trigger fingers Family History Mother Diabetes Father Diabetes Grandfather (Paternal) Colon cancer Grandfather (Paternal) No problems noted. Grandfather (Maternal) Colon cancer Grandmother Stroke Other Alzheimer disease Social History Smoking Status: Never smoker Second Hand Exposure: No; Do You Dip or Chew Tobacco: No; Tobacco Cessation Education Requested by Patient: No Hx Alcohol Use: Yes Alcohol type: wine Hx Substance Use: No Preferred Language: Citizen [place] Communication Ability: Effective Hub Lead Required: No Beliefs That Will Affect Care: None Current Living Situation: Family Current Living Situation Comment: Lives with sister Other Information That Helps Us Care for You: No Feels Safe at Home: Yes Safety Concerns: Feels Safe At This Time Assistive Devices: None Review of Systems Review of Systems: All systems reviewed & are unremarkable except as noted in Subjective Physical Exam Physical Exam: GENERAL : No acute distress. EYES: No icterus, gaze conjugate. Pupils equal round and reactive to light NOSE: No evidence of epistaxis MOUTH: No lesions or candidiasis. Mucosa dry. Tongue is midline. No facial droop NECK: Supple. Ice pack is in place over the incision site for the right carotid endarterectomy. Incision line is closed with Dermabond. LUNGS: CTA B/L, no wheezes, rales or rhonchi HEART: Regular, rate controlled ABDOMEN: Soft, NT, ND, BS Present EXTREMITIES: No LE edema, pedal pulses intact NEURO: A&OX3. Pupils equal round and reactive to light . Patient able to move all extremities. No apparent deficits neurologically. Results & Data Results & Data ([facility]) Vital Signs (Past 12 Hours) Vital Signs Temp Pulse Pulse Resp BP BP BP 09/03/21 13:40 81 15 09/03/21 13:30 58 L 17 09/03/21 13:20 59 L 14 09/03/21 13:10 58 L 14 09/03/21 13:00 56 L 12 120/59 L 09/03/21 12:50 55 L 13 09/03/21 12:40 54 L 12 09/03/21 12:30 53 L 12 09/03/21 12:20 53 L 13 09/03/21 12:10 54 L 13 09/03/21 12:00 62 12 138/63 09/03/21 11:50 70 18 09/03/21 11:40 58 L 13 09/03/21 11:30 70 14 09/03/21 11:20 65 15 09/03/21 11:10 70 12 09/03/21 11:02 14 09/03/21 10:50 36.2 C L 68 18 138/71 09/03/21 10:40 68 18 157/85 H 09/03/21 10:30 93 H 18 170/86 H 09/03/21 10:22 36.0 C L 75 18 154/84 H 09/03/21 06:23 36.6 C 57 L 20 158/82 H 158/67 H Pulse Ox 09/03/21 13:40 98 09/03/21 13:30 98 09/03/21 13:20 98 09/03/21 13:10 99 09/03/21 13:00 98 09/03/21 12:50 99 09/03/21 12:40 99 09/03/21 12:30 98 09/03/21 12:20 98 09/03/21 12:10 99 09/03/21 12:00 99 09/03/21 11:50 98 09/03/21 11:40 100 09/03/21 11:30 99 09/03/21 11:20 99 09/03/21 11:10 98 09/03/21 11:02 99 09/03/21 10:50 95 09/03/21 10:40 95 09/03/21 10:30 100 09/03/21 10:22 99 09/03/21 06:23 100 Laboratory Results 09/03/21 06:11 Diagnostic Findings XR chest Pre-admission PA/Lat CLINICAL HISTORY: pat. Evaluate cardiopulmonary status COMPARISON STUDY: 02/15/2021 TECHNIQUE: 2 views of the chest FINDINGS: Frontal and lateral radiographs of the chest demonstrate the cardiomediastinal silhouette to be within normal limits. The lungs are clear of alveolar opacities. There is no evidence for effusion bilaterally. There is no evidence for vascular congestion. There is no acute osseous pathology. Mild degenerative changes are present. IMPRESSION: No acute cardiopulmonary disease. ACT 112: Negative or not required by law. Electronically signed by: Tez Lima M.D. 08/30/2021 10:18 AM Coding Level of Care Code 73418 Inpt Consult Level 3 Diagnoses Status post carotid endarterectomy Z98.890 Right internal carotid occlusion I65.21 Hypertension I10 Asthma J45.909 WYATT (acute kidney injury) N17.9 Hypothyroidism E03.9 Hypercalcemia E83.52 Time Spent (min) 60
[2021-09-03] MEDS: VALSARTAN 80 MG TAB PO SCH (16:54)
[2021-09-03] MEDS: ceFAZolin 1000MG 1,000 MG/7.5 ML SYR IV SCH (16:56)
[2021-09-03] MEDS ORDERED: IBUPROFEN 600 MG TAB PO SCH (21:00)
[2021-09-03] MEDS ORDERED: amLODIPine BESYLATE 5 MG TAB PO SCH (21:00)
[2021-09-03] MEDS ORDERED: LABETALOL HCL IV 5 MG/ML 20ML IV STA (21:40)
[2021-09-04] MEDS: ceFAZolin 1000MG 1,000 MG/7.5 ML SYR IV SCH (01:00)
[2021-09-04] MEDS ORDERED: LABETALOL HCL IV 5 MG/ML 20ML IV STA (03:05)
[2021-09-04] MEDS ORDERED: LABETALOL HCL IV 5 MG/ML 20ML IV ONE (03:06)
[2021-09-04] MEDS ORDERED: LORazepam 0.25 MG/0.5 ML VIAL IV STA (03:07)
[2021-09-04] MEDS ORDERED: LORazepam 2 MG/4 ML VIAL ONE (03:13)
[2021-09-04 04:31] LABS: Eosinophils # (auto) 0.03 K/uL (0-0.5); Eosinophils % (auto) 0.2 %; Hematocrit (blood only) 40.8 % (37-47); Hemoglobin 13.9 g/dL (12.0-16.0); Immature Granulocytes # (auto) 0.04 K/uL (0.00-0.02); Immature Granulocytes % (auto) 0.2 %; Lymphocytes # (auto) 2.42 K/uL (1.2-3.4); Mean Corpuscular Hgb Conc 34.1 g/dL (32-36); Mean Corpuscular Volume 91.1 fL (80-100); Mean Platelet Volume 10.5 fL (7.4-10.4); Monocytes # (auto) 1.59 K/uL (0.11-0.59); Monocytes % (auto) 9.2 %; Neutrophils # (auto) 13.23 K/uL (1.4-6.5); Neutrophils % (auto) 76.4 %; Platelet Count 304 K/uL (130-400); RDW Coefficient of Variation 12.6 % (11.5-14.5); Red Blood Count 4.48 M/uL (4.2-5.4); White Blood Count 17.31 K/uL (4.8-10.8)
[2021-09-04] MEDS ORDERED: LEVOTHYROXINE SODIUM 112 MCG TABLET PO SCH (06:30)
--- NOTE | 2021-09-04 07:34 | Critical Care Progress Note ---
Date of Service September 04, 2021 Assessment & Plan (1) Status post carotid endarterectomy: (2) Hypertension: (3) Asthma: Plan: Impression: 76-year-old female status post right carotid endarterectomy. Doing well postoperatively. Recommendations: 1. Post endarterectomy: Management per vascular surgery. Disposition per vascular. 2. Asthma: Appears well controlled currently. No indication for steroids. As needed inhalers. 3. Hypertension: On home amlodipine and valsartan. Continue to follow. Disposition per vascular surgery. Critical care issues appear resolved. Will sign off for now. Feel free to contact us if we can be of additional assistance. Admission and Anticipated Discharge Date Admission Date: September 03, 2021 Subjective Patient seen and examined. EMR reviewed. She states she had a rough night and did not sleep much. Her neck feels fine. She has no new neurological complaints. Specifically denies numbness tingling or weakness. No vision changes. She did require a few doses of as needed labetalol last night. She is out of bed using the bedside commode. She is anxious to go home. Review of Systems Review of Systems: All systems reviewed & are unremarkable except as noted in Subjective Physical Exam Constitutional: WD/WN, vitals as above Neck: trachea midline, no thyromegaly Mild ecchymoses around the incision. No hematoma. Respiratory: normal respiratory effort, lungs clear to auscultation Cardiovascular: RRR, no murmur, no edema Gastrointestinal (Abdomen): normal bowel sounds, soft, nontender, no hepatosplenomegaly Musculoskeletal: Extremities: extremities normal to inspection Skin: no rashes, warm and dry Neurologic: Nonfocal exam Lymphatic: no cervical lymphadenopathy Results & Data Results & Data ([facility]) Vital Signs (Past 12 Hours) Vital Signs Temp Pulse Resp BP Pulse Ox 09/04/21 04:30 55 L 15 98 09/04/21 03:30 56 L 14 99 09/04/21 03:00 76 21 99 09/04/21 02:30 52 L 16 99 09/04/21 02:00 55 L 17 150/73 H 98 09/04/21 01:30 61 16 97 09/04/21 01:00 56 L 15 153/91 H 98 09/04/21 00:00 75 17 156/80 H 99 09/03/21 23:00 64 12 157/77 H 98 09/03/21 22:00 63 10 L 142/63 H 100 09/03/21 21:00 71 17 95 09/03/21 20:00 36.8 C 69 17 147/69 H 96 Critical Care Results & Data Vital Signs (Past 12 Hours) Vital Signs Temp Pulse Resp BP Pulse Ox 09/04/21 04:30 55 L 15 98 09/04/21 03:30 56 L 14 99 09/04/21 03:00 76 21 99 09/04/21 02:30 52 L 16 99 09/04/21 02:00 55 L 17 150/73 H 98 09/04/21 01:30 61 16 97 09/04/21 01:00 56 L 15 153/91 H 98 09/04/21 00:00 75 17 156/80 H 99 09/03/21 23:00 64 12 157/77 H 98 09/03/21 22:00 63 10 L 142/63 H 100 09/03/21 21:00 71 17 95 09/03/21 20:00 36.8 C 69 17 147/69 H 96 Lab & Micro Results (Past 24 Hours) RBC 4.48 M/uL (4.2-5.4) 09/04/21 WBC 17.31 K/uL (4.8-10.8) H 09/04/21 Hgb 13.9 g/dL (12.0-16.0) 09/04/21 Hct 40.8 % (37-47) 09/04/21 MCV 91.1 fL (80-100) 09/04/21 MCH 31.0 pg (25-34) 09/04/21 MCHC 34.1 g/dL (32-36) 09/04/21 RDW Standard Deviation 42.0 fL (36.4-46.3) 09/04/21 RDW Coefficient of Variation 12.6 % (11.5-14.5) 09/04/21 Plt Count 304 K/uL (130-400) 09/04/21 MPV 10.5 fL (7.4-10.4) H 09/04/21 Neutrophils (%) (Auto) 76.4 % 09/04/21 Lymphocytes (%) (Auto) 14.0 % 09/04/21 Monocytes # (Auto) 1.59 K/uL (0.11-0.59) H 09/04/21 Eosinophils # (Auto) 0.03 K/uL (0-0.5) 09/04/21 Immature Granulocyte % (Auto) 0.2 % 09/04/21 Neutrophils # (Auto) 13.23 K/uL (1.4-6.5) H 09/04/21 Lymphocytes # (Auto) 2.42 K/uL (1.2-3.4) 09/04/21 Monocytes # (Auto) 1.59 K/uL (0.11-0.59) H 09/04/21 Eosinophils # (Auto) 0.03 K/uL (0-0.5) 09/04/21 Basophils # (Auto) 0.00 K/uL (0-0.2) 09/04/21 Immature Granulocyte # (Auto) 0.04 K/uL (0.00-0.02) H 09/04/21 No Data to Display No Data to Display I & O Totals 24 Hours 09/03/21 09/04/21 09/05/21 06:59 06:59 06:59 Intake Total 3100 / 3100 Output Total 2100 / 2100 Balance 1000 / 1000 Cumulative 08/22/21 11:37 thru 09/04/21 06:00 Intake Total 3100 Output Total 2100 Balance 1000 RT Ventilator Mngmt (Last Documented) Ventilator Ordered Settings Respiratory Rate 15 09/04/21 04:30 Ventilator - PT Measurements Respiratory Rate 15 Coding Level of Care Code 96426 Subseq Hosp Care Lvl 2 Diagnoses Status post carotid endarterectomy Z98.890 Hypertension I10 Asthma J45.909
[2021-09-04] MEDS: VALSARTAN 80 MG TAB PO SCH (08:41)
--- NOTE | 2021-09-04 08:49 | Surgery Progress Note ---
Date of Service September 04, 2021 Assessment & Plan (1) Status post carotid endarterectomy: Plan: At this point we will DC her arterial line, IVs, and oxygen. She will be out of bed and eat breakfast. If she feels better by noon we will discharge her to self-care at home. Admission and Anticipated Discharge Date Admission Date: September 03, 2021 Subjective Patient says she has had a bad night. Her heart rate was in the low 50s setting off the alarms. She was uncomfortable. She was also slightly hypertensive during the night. She states she was given Ativan which helped her out. Physical Exam Physical Exam: On physical exam she is awake alert and oriented x3. She is in no apparent distress. The neck incision is dry and clean without any swelling. Her neurologic exam is grossly intact. Her tongue is midline. She has no facial droop. Lungs are clear and her heart had a regular rhythm. Results & Data ([facility]) Vital Signs (Past 12 Hours) Vital Signs Temp Pulse Resp BP Pulse Ox 09/04/21 08:08 36.7 C 60 18 98 09/04/21 08:00 60 09/04/21 04:30 55 L 15 98 09/04/21 03:30 56 L 14 99 09/04/21 03:00 76 21 99 09/04/21 02:30 52 L 16 99 09/04/21 02:00 55 L 17 150/73 H 98 09/04/21 01:30 61 16 97 09/04/21 01:00 56 L 15 153/91 H 98 09/04/21 00:00 75 17 156/80 H 99 09/03/21 23:00 64 12 157/77 H 98 09/03/21 22:00 63 10 L 142/63 H 100 09/03/21 21:00 71 17 95
[2021-09-04] MEDS ORDERED: ASPIRIN 81 MG ECTAB PO SCH (09:00)
[2021-09-04] MEDS: ASCORBIC ACID 500 MG TAB PO SCH (11:30)
--- NOTE | 2021-09-06 13:20 | Discharge Summary ---
Date of Service September 06, 2021 Admission HPI Per Admitting Provider Name: MARGY PORTER Patient Number: [id number] : 1945 Date of Service: 08/20/2021 Chief Complaint: _New patient consultation for right ICA stenosis HPI: _ is an elderly female vascular surgery clinic today as a new patient in consultation regarding a recent finding of severe right internal carotid artery stenosis on ultrasound. Patient states that she saw her cardiol ogist for a routine care visit and he noted a sound in her neck, and sent her for testing the same day. Patient states she was advised that her ultrasound indicated severe plaque and she was advised to see us today. Patient states that she did have an episode months ago where she had some slurred speech and confusion and was admitted to the hospital for a possible stroke, but they determined that it was some kind of a migraine. She has not had recurrence of the symptoms. She denies amaurosis, extremity weakness numbness or tingling, difficulty speaking or swallowing, facial droop, sudden onset confusion, other concerns. Additionally she denies fever, chills, chest pain, shortness of breath, dull pain, nausea, vomiting, rest pain, claudication, nonhealing wounds or ulcers, other concerns. Review of systems: 14 systems were reviewed and are negative aside from what is related in her HPI. Imaging: Patient underwent a carotid ultrasound which indicated 80 to 99% stenosis of her right ICA, and velocities of 400/200. Current Home Meds: (Last Updated 08/20 13:38) amLODIPine (amLODIPine 5 mg oral tablet) 5 mg PO Daily aspirin (aspirin 81 mg oral tablet) two tabs daily cholecalciferol (Vitamin D3) 7,000 IU doxycycline (doxycycline hyclate 100 mg oral tablet) 100 mg PO bid levothyroxine (levothyroxine 112 mcg (0.112 mg) oral tablet) 1.5 tabs on Friday and 1 tab on all other days mometasone nasal (Nasonex 50 mcg/inh nasal spray) 2 spray each nostril Daily PRN: as needed for allergy symptoms triamcinolone topical (triamcinolone 0.5% topical cream) 1 appl topical bid apply a thin film to area left wrist valsartan (valsartan 160 mg oral tablet) 160 mg PO bid Allergies and Sensitivities: Demerol(unknown) Demerol(Unknown) isopropyl alcohol topical(Skin irritation) isopropyl alcohol topical(see comment) hydrALAZINE(migraine) Tylenol(brain goes crazy) Tylenol(can't remember stuf) sulfa drugs CHIP Inhibitors codeine Bactrim Past Medical History: Problems: Carotid stenosis JAIN (dyspnea on exertion) History of prediabetes H/O echocardiogram Hypothyroidism Allergic rhinitis due to allergen Lumbosacral radiculopathy at L5 Generalized osteoarthritis of multiple sites Essential hypertension Family history: Alzheimer's disease in her mother, cancer in her father, hypertension in her brother Surgical history: Positive for section, colonoscopy, cardiac catheterization, trigger finger release Social history: Patient is a non-smoker, and does not use illicit drugs or drink alcohol. [place]. She is very active. OBJECTIVE Vitals: Last Updated 08/20/21 13:42 Date Temp BP Location Pulse RR SpO2 Pain 08/20/21 146/60 Right Arm 08/20/21 154/74 Left Arm 68 98 08/20/21 0 Vital Signs are the last 3 documented. No Orthostatic Data Available Height and Weight: Last Updated 07/17/21 14:10 Date BMI Wt(kg) Wt(lb) Method Ht(cm) (ft-in) Method 07/17/21 78.8 173 Standing Scale 06/12/21 80 176 Standing Scale 05/14/21 78.4 172 Standing Scale Heights and Weights are the last 3 documented. Physical Exam _ Constitutional: In general patient is a healthy-appearing well-nourished elderly female no distress. She is alert and oriented without any focal neurological deficits. Her head is normocephalic and atraumatic. Her trachea is midline, her right carotid does demonstrate a bruit. Her heart is regular, her lungs are clear throughout. Her abdomen is soft nontender with normoactive bowel sounds in all 4 quadrants. There is no pulsatile mass appreciable. Her brachial radial and ulnar pulses are +3. Her lower extremity distal pulses are +2. She has brisk capillary refill and no sign of distal ischemia. ASSESSMENT: _ PLAN: _ 1 ) _severe right internal carotid artery stenosis Overall this patient does not appear to have any recent symptoms her right ICA stenosis. It is unclear whether she underwent previous imaging during her possible TIA event months ago. At this time her carotid ultrasound indicates severe stenosis and likely 99%. This does put her at considerable risk of a CVA, and patient was also seen by Dr. Scott in the office today who recommends that patient undergo a right carotid endarterectomy procedure. We will obtain a CTA prior to her procedure. The procedure, risks, benefits, and alternatives were discussed with the patient by Dr. Scott in the office today. Patient expresses understanding and agreement to proceed. This will occur soon. We will keep you informed as to the outcome of surgery. Patient is advised to call here with any questions or concerns. Thank you for letting us participate in the care of this patient. Signature Line Electronic Signature on File Electronically Reviewed/Signed by: Avani Mosley PA-C Author Signature Dt/Tm:08/20/2021 04:45 PM [facility] [address], [address] [place] [address] Electronically Reviewed/Signed by: Mateus Scott MD Cosigner Signature Dt/Tm: 08/21/2021 10:59 AM Sample Coordinator [facility] [address], [facility] [address] [place] [address] LM Result Type: HVI Outpt Note Date of Service: August 20, 2021 16:35 EST Authorization Status: Final Author or Import Date: JACKIE Mosley Lynn on August 20, 2021 16:45 EST Verified By: MD Tyler, Mateus Soriano on August 21, 2021 10:59 EST Encounter info: [id number], [facility], 08/20/2021 - 08/20/2021 Admission Exam Per Admitting Provider Constitutional: In general patient is a healthy-appearing well-nourished elderly female no distress. She is alert and oriented without any focal neurological deficits. Her head is normocephalic and atraumatic. Her trachea is midline, her right carotid does demonstrate a bruit. Her heart is regular, her lungs are clear throughout. Her abdomen is soft nontender with normoactive bowel sounds in all 4 quadrants. There is no pulsatile mass appreciable. Her brachial radial and ulnar pulses are +3. Her lower extremity distal pulses are +2. She has brisk capillary refill and no sign of distal ischemia. Principal Diagnosis 1. s/p R CEA with bovine patch 2. Severe R ICA stenosis Discharge Exam On physical exam she is awake alert and oriented x3. She is in no apparent distress. The neck incision is dry and clean without any swelling. Her neurologic exam is grossly intact. Her tongue is midline. She has no facial droop. Lungs are clear and her heart had a regular rhythm. Discharge Data Allergies Allergy/AdvReac Type Severity Reaction Status Date / Time hydralazine Allergy Severe Hypotension/ Verified 08/28/21 08:35 tremors/ headache codeine Allergy Intermediate n/v Verified 08/28/21 08:35 isopropyl alcohol Allergy Intermediate RED Verified 08/28/21 08:32 BULLET-LIKE RASH acetaminophen Allergy Unknown bad family Verified 08/28/21 08:37 hx of reaction sulfamethoxazole Allergy Unknown Verified 08/28/21 08:32 [From Bactrim] trimethoprim [From Bactrim] Allergy Unknown Verified 08/28/21 08:32 Sulfa (Sulfonamide AdvReac Severe N/V Verified 08/28/21 08:35 Antibiotics) lisinopril AdvReac Intermediate cough Verified 08/28/21 08:35 meperidine AdvReac Intermediate n/v/diaphor Verified 09/03/21 06:15 etic Consultations 09/03/21 07:22 Consult Management Aide Routine Procedures Performed Operation Date: 09/03/21 07:30 Actual Procedures p Right Carotid Endartectomy with Patch(Right) - Mateus Scott MD Hospital Course (1) Status post carotid endarterectomy: Pt is doing well postop day #1. At this point we will DC her arterial line, IVs, and oxygen. She will be out of bed and eat breakfast. If she feels better by noon we will discharge her to self-care at home. Total Time Total Time Spent Total Time Spent (In Minutes): 0 Discharge Plan Discharge Items Patient Disposition: Home - Self-Care Reason For Visit: SEVERE Right Internal Carotid Artery Stenosis Discharge Diagnosis: Right internal carotid stenosis, Right carotid endarterectomy Activity: Per Instructions section Bathing Comment: May shower starting tomorrow Non-emergency contact: Surgeon Call non-emergency contact if: your temperature is above 101.5, your wound has increased redness, your wound has increased drainage and your wound pain has increased Follow-up/Referrals: Grace Presley CRNP [Primary Care Provider] - 09/06/21 10:30 am Diet: Heart Healthy Addtl Attending Provider Instructions: SPECIAL CARE INSTRUCTIONS: Medications: * Continue to take Aspirin as directed. Incision Care: * You may shower, but do not rub incision. You may let the warm soapy water run over it. Be sure to dry the incision well after bathing. * Do not shave directly over the incision until it is healed. * DO NOT IMMERSE THE INCISION IN A TUB/POOL/etc. UNTIL HEALED. Restrictions: * Do not drive for at least one week or if you are still taking any narcotic pain medication. * Do not lift anything heavier than a gallon of milk for one week after going home. Possible Complications: * Numbness - It is normal to have some numbness around the incision. Numbness can extend beyond the incision to areas of the neck, ear and face. The numbness is due to bruising of nerves during the surgery and will gradually improve over a period of months. * Hoarseness/Difficulty Speaking and Swallowing - The bruising of nerves in the neck can also cause a hoarse voice, difficulty speaking or swallowing. This may improve over time, HOWEVER, if it continues for more than a few days please contact our office ([phone]). * Excessive Swelling - There will be some swelling immediately after surgery which usually resolves within one week. If you notice that the swelling is getting worse, notify your surgeon ([phone]). * Drainage/Bleeding - If there is any drainage or bleeding, it should be a very small amount (less than a teaspoon per day). If you have excessive bleeding or drainage from the incision, call your surgeon ([phone]) right away. ACTIVATION OF EMERGENCY MEDICAL SYSTEM: Call 911, immediately, if you experience any of the following: Warning Signs and Symptoms of Stroke: * Sudden numbness or weakness of the face, arm or leg, especially on one side of the body * Sudden confusion, trouble speaking or understanding * Sudden trouble seeing in one or both eyes * Sudden trouble walking, dizziness, loss of balance or coordination * Sudden severe headache with no cause Do not delay calling 911 if you experience any warning signs or symptoms of a stroke. Delay in seeking medical attention may affect what treatments can be given to you. Risk Factors for Stroke: You can reduce your chances of stroke by working with your medical provider to adopt a healthy lifestyle. Some specific ways to lower your chance of stroke are: * If you are a smoker, now is the time to stop smoking cigarettes * If you are diabetic, improve the control of your blood sugars * Avoid excessive amounts of alcohol * Control high blood pressure * Lose weight if you are overweight * Be sure to lead an active lifestyle * Eat a healthy diet low in salt, cholesterol and fat You should know about other risk factors for stroke that you are unable to control. These include: * Age 55 years or older * Male gender * Certain racial groups: , or / * Family History of Stroke, Mini stroke or Heart Attack * Sickle Cell Disease You will be receiving a call from the Vascular Surgery Nurse after you are discharged. FOLLOW UP VISIT: It is important for you to keep your follow up appointments with your medical provider. Keep any scheduled doctor appointments. Call [phone] to schedule a follow up appointment if one not already scheduled. Pending Studies at Discharge: No Stand-Alone Forms: My [facility], Smoking Cessation Medications and DC Order Prescriptions: Continued aspirin [Aspirin Childrens] 81 mg tablet,chewable 81 mg PO QAM RF: 0 coenzyme Q10 [Co Q-10] 10 mg capsule 10 mg PO TID RF: 0 valsartan 160 mg tablet 160 mg PO BID RF: 0 levothyroxine 112 mcg tablet 112 mcg PO QAM RF: 0 ascorbic acid (vitamin C) [Vitamin C] 1,000 mg Tablet 1 g PO QDL RF: 0 amlodipine 5 mg Tablet 5 mg PO HS RF: 0 ibuprofen 600 mg Tablet 600 mg PO HS RF: 0 albuterol sulfate 90 mcg/actuation Hfa Aerosol Inhaler 1 inh INHALATION QID PRN (Reason: Wheezing) RF: 0 famotidine 20 mg Tablet 20 mg PO BID PRN (Reason: Heartburn) RF: 0 Nasonex QPM RF: 0 Discharge Orders: Discharge Order (Routine); Ordered 09/04/21 Ordered By: Mateus Scott Admission Data Admit Date/Time: 09/03/21 07:22 Attending Provider: Mateus Scott Admit Provider: Mateus Scott Primary Care Provider: Grace Presley Other Providers: Jesus Barreto ; Du Cruz ; Norberto Burciaga ; Amado Morris ; Yovani Pulliam ; Pranav Humphrey ; Irene Miles ; Evangelista Baez Other Interventions: Discharge Summary Assessment (RN) Last Done: 09/04/21 11:54
== END 2021-09-04 13:02 | disposition home or self-care (01) | DRG 38 ==
LOC: ASU 05:57 → 1E 07:22